=== PATIENT | female | born 1950 | race Caucasian/White ===

== ENCOUNTER → 2021-05-16 14:18 | Outpatient (CLI) | payer MEDICARE, OTHER, SELFPAY ==
--- NOTE | ~2021-05-16 | CT_ITS ---
EXAMINATION: XR abdomen/kub 1V, CT abdomen pelvis wo/w con DATE: 05/16/2021 15:35 INDICATION: Gross hematuria TECHNIQUE: 1. Computed tomography (CT) of the abdomen and pelvis was performed without intravenous contrast. CT of the abdomen and pelvis was then performed with a total of 130 mL Omnipaque-350 intravenous contras t using a double-bolus technique for simultaneous opacification of the renal parenchyma and renal col lecting system. Maximum intensity projection images of the collecting system were created from the vo lumetric source images by the technologist at a separate workstation. A single view of the abdomen wa s obtained on 2 radiographs. The dose-length product was 2032.73 mGy-cm. 2. AP view of the abdomen and pelvis was obtained on 2 radiographs. COMPARISON: None FINDINGS: CT: Compressive atelectasis in the basilar left lower lobe along the elevated left hemidiaphragm. Bronchi ectasis and mild atelectasis/scarring at the basilar right lower lobe. Heart size is normal. No peric ardial or pleural effusion. Small sliding-type hiatal hernia. Gallbladder is not visualized and likel y surgically absent. Liver, pancreas and bilateral adrenal glands are normal. Subtle calcification al leonard a focal invagination along the posterolateral splenic capsule likely sequela of prior infarct or trauma. 2 mm nonobstructing stone at a lower pole calyx of the right kidney. No other urolithiasis on either the left or right. 1.3 cm parapelvic cyst at the upper pole of the left kidney. Bilateral marialuisa al collecting systems and ureters are opacified in their entirety. No evident filling defects or urot helial irregularities. Small phlebolith is seen in the left gonadal vein just anterior to the proxima l left ureter. Bladder is normal. There is mild colonic diverticulosis with a sigmoid predominance. There is no adjacent inflammatory change to suggest diverticulitis. The appendix is not visualized. N o pericecal inflammatory change to suggest acute appendicitis. No bowel obstruction. The uterus is no t identified and has likely been surgically resected. Pelvic floor relaxation. No free intraperitonea l gas or fluid. No pathologically enlarged abdominal or pelvic lymphadenopathy. L5 spondylolysis with bilateral pars intra-articular is defects and 7 mm anterolisthesis on S1. KUB: The tiny stone at the lower pole of the right kidney is not visible on the plain radiographs likely d ue to its small size. The previously noted phlebolith can be seen lateral to the L3-L4 disc space. La rge haustral scattered throughout the colon. IMPRESSION: 1. 2 mm nonobstructing stone at the lower pole of the right kidney. No other urolithiasis. 2. Small sliding-type hiatal hernia. Reviewed, dictated and finalized at location A. IMPRESSION: 1. 2 mm nonobstructing stone at the lower pole of the right kidney. No other ur olithiasis. 2. Small sliding-type hiatal hernia.
[2021-05-16 14:57] LABS: Estimated Glomerular Filt Rate 55
== END ==
PROVIDERS: PCP Family Medicine; Visit Provider Nurse Practitioner Adult Health
DX: R31.0 Gross hematuria (principal); K44.9 Diaphragmatic hernia without obstruction or gangrene; N20.0 Calculus of kidney
CPT/HCPCS: 74018; 74178; Q9967

== ENCOUNTER 2021-12-17 07:09 | Outpatient (CLI) | payer MEDICARE, OTHER, SELFPAY ==
--- NOTE | ~2021-12-17 | XR_ITS ---
EXAMINATION: XR abdomen/kub 1V INDICATION: Kidney stone TECHNIQUE: Supine views of the abdomen were obtained on 2 radiographs. COMPARISON: 05/16/2021 FINDINGS: No urolithiasis is identified. The bowel gas pattern is normal. The visualized lung bases a re clear. There is moderate osteoarthritis of the hips. Phleboliths are noted in the pelvis. IMPRESSION: 1. No urolithiasis identified. Reviewed, dictated and finalized at location A. EMIC SUCCESS COORDINATOR
== END 2021-12-17 07:10 | disposition home or self-care (01) ==
PROVIDERS: PCP Family Medicine; Visit Provider Urology
DX: N20.0 Calculus of kidney (principal)
CPT/HCPCS: 74018

== ENCOUNTER 2022-12-10 09:35 | Outpatient (CLI) | payer MEDICARE, OTHER, SELFPAY ==
--- NOTE | ~2022-12-10 | XR_ITS ---
EXAMINATION: XR abdomen/kub 1V INDICATION: Kidney stone TECHNIQUE: Supine views of the abdomen were obtained on 2 radiographs. COMPARISON: 12/17/2021 FINDINGS: No urolithiasis is identified. There are phleboliths of the pelvis. There also appears to b e a chronic phleboliths in the left ovarian vein. A moderate volume of colonic stool is present. Hayes l gas pattern. There is mild osteoarthritis of the hips. Moderate lumbar spondylosis is noted. IMPRESSION: 1. No urolithiasis identified. Reviewed, dictated and finalized at location L. DBOAT OPERATOR
== END 2022-12-10 09:36 | disposition home or self-care (01) ==
PROVIDERS: PCP Family Medicine; Visit Provider Urology
DX: N20.0 Calculus of kidney (principal)
CPT/HCPCS: 74018

== ENCOUNTER 2023-12-30 08:39 | Outpatient (CLI) | payer MEDICARE, OTHER, SELFPAY ==
--- NOTE | ~2023-12-30 | XR_ITS ---
EXAMINATION: XR abdomen/kub 1V INDICATION: Kidney stone TECHNIQUE: Supine views of the abdomen were obtained on 2 radiographs. COMPARISON: 12/10/2022 FINDINGS: No urolithiasis is identified. A chronic calcification of the left midabdomen is consistent with left ovarian vein phleboliths. The bowel gas pattern is normal. There is moderate lumbar spondy losis. There is mild osteoarthritis of the hips. IMPRESSION: 1. No urolithiasis identified. Reviewed, dictated and finalized at location L. OMER ASSISTANCE ASSOCIATE
== END 2023-12-30 08:40 | disposition home or self-care (01) ==
PROVIDERS: PCP Family Medicine; Visit Provider Urology
DX: N20.0 Calculus of kidney (principal)
CPT/HCPCS: 74018

== ENCOUNTER 2025-01-06 08:56 | Outpatient (CLI) | payer MEDICARE, OTHER, SELFPAY ==
--- NOTE | ~2025-01-06 | XR_ITS ---
EXAMINATION: XR abdomen/kub 1V DATE: 01/06/2025 09:11 INDICATION: Right kidney stone. TECHNIQUE: A supine view of the abdomen on 2 radiographs was obtained. COMPARISON: CT abdomen and pelvis 05/16/2021 FINDINGS: There are no dilated loops of bowel. There is a phlebolith in left ovarian vein. There are phleboliths in right pelvis. IMPRESSION: 1. No visible urolithiasis. Reviewed, dictated and finalized at location A. NATAL EDUCATOR IMPRESSION: 1. No visible urolithiasis.
--- OUTSIDE RECORDS SUMMARY | 2025-01-06 09:31 | XMS_ITS | Referral Summary ---
Author Organization [place] [id number] [facility] Address [facility] [place] [address] Care Team Providers Care Electrical Designer Drafter Name Role Phone Rudolph Robledo DO Primary Care Provider Encounters Date Type Department Care Team Description 01/04/2025 Results Follow-Up [facility] Medical [facility] Primary Care [address] [place] [address] [phone] Rudolph Robledo DO 01/04/2025 8:15 AM [facility]EL[facility] Lab [facility] Office Building [address] [place] [id number] Primary hypertension 01/04/2025 7:45 AM PORCELAIN WAXER Office Visit [facility] Primary Care [address] [place] [address] [phone] Rudolph Robledo DO Longstanding persistent atrial fibrillation (HCC) (Primary Dx); KADE (obstructive sleep apnea); Old NE (myocardial infarction); Primary insomnia; Primary hypertension; Hyperactivity of bladder; Generalized osteoarthritis; Mixed hyperlipidemia; Coronary artery disease involving [place] coronary artery of [place] heart without angina pectoris; Vitamin D deficiency; Peripheral polyneuropathy; Osteopenia of multiple sites from Last 3 Months Allergies Active Allergy Reactions Criticality Noted Date Comments Kelton Inhibitors Cough High 04/05/2019 Amiodarone Other (See comments) Low 12/10/2019 Thyroid and liver labs out of control Medications amLODIPine (NORVASC) 5 mg tablet Take 1 tablet (5 mg total) by mouth daily Active apixaban (ELIQUIS) 5 mg tablet Take 1 tablet (5 mg total) by mouth 2 (two) times a day Active oxyBUTYnin XL (DITROPAN XL) 15 mg 24 hr tablet Take 1 tablet (15 mg total) by mouth daily Active mupirocin (BACTROBAN) 2 % ointment APPLY OINTMENT TOPICALLY 4 TIMES DAILY Active atorvastatin (LIPITOR) 80 mg tablet Take 1 tablet (80 mg total) by mouth daily Active aspirin 81 mg enteric coated tablet Take 1 tablet (81 mg total) by mouth daily Active cholecalciferol (VITAMIN D-3) 25 mcg (1,000 unit) tablet Take 2 tablets (2,000 Units total) by mouth daily Active ezetimibe (ZETIA) 10 mg tablet Take 1 tablet (10 mg total) by mouth daily Active losartan (COZAAR) 100 mg tablet Take 1 tablet (100 mg total) by mouth daily Active metoprolol tartrate (LOPRESSOR) 25 mg immediate release tablet Take 1 tablet (25 mg total) by mouth 2 (two) times a day Active calcium carbonate-vitam in D3 (CALTRATE 600 + D) 1500 mg (600 mg elemental) -400 units per tablet Take by mouth Active Active Problems Problem Noted Date Diagnosed Date Peripheral polyneuropathy 01/04/2025 Overview (01/04/2025): Mild distal neuropathy Continue to monitor symptoms She is staying active Routine physical examination 06/21/2024 Overview (06/21/2024): February 11, 2023 June 21, 2024 Generalized osteoarthritis 02/11/2023 Overview (06/21/2024): Chronic global arthritis Overall stable Working on weight management and staying active Morbid obesity 02/11/2023 Overview (06/21/2024): BMI 37 with hypertension and coronary disease Weight management discussed KADE (obstructive sleep apnea) 06/10/2017 Overview (06/21/2024): KADE is overall stable Continue CPAP use Atrial fibrillation 06/16/2015 Overview (06/21/2024): Chronic condition is overall stable She is following with Cardiology Rate is controlled on beta-belgica She is in and anticoagulation study: Eliquis vs. Milvexian CAD (coronary artery disease), [place] coronary a rtery 06/16/2015 Overview (06/21/2024): Coronary disease with old myocardial infarction without angina She is doing well at this present time Continue with Cardiology She is on a beta-belgica and statin with daily aspirin Continue same medications Old NE (myocardial infarction) 06/16/2015 Overview (06/21/2024): Description: 09/16 Coronary disease with old myocardial infarction without angina She is doing well at this present time Continue with Cardiology She is on a beta-belgica and statin with daily aspirin Continue same medications Hyperactivity of bladder 09/07/2013 Overview (06/21/2024): Chronic, stable condition on oxybutynin Continue same medications Insomnia 09/07/2013 Overview (06/21/2024): Insomnia overall stable not requiring nightly medication Continue monitoring Chronic lower back pain 08/31/2013 Hyperlipidemia 08/31/2013 Overview (06/21/2024): Chronic, stable condition on Lipitor and Zetia Continue same medications Hypertension 08/31/2013 Overview (06/21/2024): Chronic, stable condition on Norvasc, losartan, metoprolol Continue same medications Vitamin D deficiency 08/31/2013 Overview (06/21/2024): Chronic, stable condition on daily vitamin-D replacement Continue same medications Immunizations Immunization Administration Dates Next Due Influenza, Quadrivalent, Hig h Dose, Preservative Free, Intrr 07/16/2023,09/03/2022,08/01/2021,08/05 Influenza, Trivalent, High D ose, Split, Preservative Free, Intramuscular 08/10/2024,08/05/2019,07/29/2018,07/02,07/24/2016 Pneumococcal Conjugate PCV 13 07/02/2017 Pneumococcal Polysaccharide PPV23 07/29/2018 TD Preservative Free 07/04/2011 Tdap 02/24/2023 ZOSTER LIVE 04/03/2012 ZOSTER Recombinant 03/22/2023,12/28/2022 Social History Tobacco Use Types Packs/Day Years Used Date Smoking Tobacco: Never Smokeless Tobacco: Never Tobacco Cessation:Counseling Given: Not Answered AUDIT-C Answer Date Recorded Q1: How often do you have a drink containing alcohol? Never 06/21/2024 Q2: How many drinks containi ng alcohol do you have on a typical day when you are drinking? Patient does not drink Q3: How often do you have si x or more drinks on one occasion? Never 06/21/2024 PHQ-2 Answer Date Recorded PHQ-2 Total Score (If total score is 3 or more points, staff should administer the PHQ-9) 0 06/21/2024 Comments Unknown Sex and Gender Information Value Date Recorded Sex Assigned at Not on file Legal Sex Female 4:02 PM PORCELAIN WAXER Gender Identity Not on file Sexual Orientation Not on file Last Filed Vital Signs Vital Sign Reading Time Taken Comments Blood Pressure 114/68 01/04/2025 7:16 AM PORCELAIN WAXER Pulse 67 01/04/2025 7:16 AM PORCELAIN WAXER Temperature 36.3 C (97.4 F) 01/04/2025 7:16 AM PORCELAIN WAXER Respiratory Rate 18 01/04/2025 7:16 AM PORCELAIN WAXER Oxygen Saturation 98% 01/04/2025 7:16 AM PORCELAIN WAXER Inhaled Oxygen Concentration - - Weight 88.9 kg (196 lb) 01/04/2025 7:16 AM PORCELAIN WAXER Height 161.3 cm (5' 3.5 ) 01/04/2025 7:16 AM PORCELAIN WAXER Body Mass Index 34.18 01/04/2025 7:16 AM PORCELAIN WAXER Plan of Treatment Not on file Procedures Procedure Name Priority Date/Time Associated Diagnosis Comments EGFR Routine 01/04/2025 7:55 AM PORCELAIN WAXER Primary hypertension COMPREHENSIVE METABOLIC PANEL Routine 01/04/2025 7:55 AM PORCELAIN WAXER Primary hypertension STOOL DNA COLOGUARD Routine 06/28/2024 8:35 PM CDT Colon cancer screening HEPATITIS C ANTIBODY Routine 06/21/2024 10:15 AM CDT Need for hepatitis C screening test SCREENING MAMMOGRAM BILATERAL W KYM Schedule Routine, Read Routine (OP Routine) 08/20/2023 from Last 3 Months or Most Recently Relevant to Health Maintenance Results * eGFR (01/04/2025 7:55 AM PORCELAIN WAXER) eGFR 78 >=60 mL/min/1. 73 m2 Comment: Interpretive Data Reference Interval Normal >/= 90 mL/min/1.73m2 Mildly decreased* 60 - 89 mL/min/1.73m2 Mildly to moderately decreased 45 - 59 mL/min/1.73m2 Moderately to severely decreased 30 - 44 mL/min/1.73m2 Severely decreased 15 - 29 mL/min/1.73m2 Kidney Failure < 15 mL/min/1.73m2 *Relative to young adult level Estimated glomerular filtration rate is determined by the 2020 CKD-EPI equation recommended by the National Kidney Foundation (A Unifying Approach to GFR Estimation: Recommendations of the NKF-ASK Task Force on Reassessing the Inclusion of Race in Diagnosing Kidney Disease, JASN 2020). The CKD-EPI equation should not be used for patients with unstable renal function and has not been validated in children and those over 70. Current interpretive data was last reviewed 2021. Testing performed by: [facility], [address] [place] [address]., [id number] Blood 01/04/2025 7:55 AM PORCELAIN WAXER 01/04/2025 9:42 AM PORCELAIN WAXER us Rudolph Robledo DO LAB BLOOD ORDERABLES F inal Result [facility] [phone] [facility] Department [place] [address] * Comprehensive metabolic panel (01/04/2025 7:55 AM PORCELAIN WAXER) Sodium 140 135 - 145 mmol/L Comment:Testing performed by : [address] [address] Potassium, pl 4.6 3.3 - 4.9 mmol/L [facility] FERRER Comment:Testing performed by : [address], [place]., [address] Chloride 107 97 - 110 mmol/L [facility] Comment:Testing performed by : [address], [place]., [address] CO2 24 22 - 32 mmol/L [facility] Comment:Testing performed by : [address], [place]., [address] Anion gap 9 2 - 15 mmol/L [facility] Comment:Testing performed by : [address], [place]., [address] BUN 18 6 - 25 mg/dL [facility] Comment:Testing performed by : [address], [place]., [address] Creatinine 0.80 0.60 - 1.10 mg/dL [facility] Comment:Testing performed by : [address], [place]., [address] Glucose 101 70 - 199 mg/dL [facility] Comment: Interpretive Data Fasting glucose >/= 126 mg/dl is diagnostic for diabetes. Fasting is defined as no caloric intake for at least 8 hours. Fasting glucose between 100 mg/dl to 125 mg/dl is diagnostic of prediabetes. In a patient with classic symptoms of hyperglycemia or hyperglycemic crisis, a random glucose >/= 200 mg/dl is diagnostic for diabetes. In the absence of unequivocal hyperglycemia, results should be confirmed by repeat testing. The classification and Diagnosis of Diabetes Diabetes Care 202; 46: S19-S40. Current interpretive data was last revised 2022. Testing performed by: [address] [address] Calcium 10.1 8.5 - 10.3 mg/dL [facility] Comment:Testing performed by : [address] [address] Bilirubin, total 0.7 0.1 - 1.2 mg/dL [facility] Comment:Testing performed by : [address] [address] Protein, pl 7.3 6.5 - 8.5 g/dL [facility] Comment:Testing performed by : [address] [address] Albumin 4.2 3.5 - 5.0 g/dL [facility] Comment:Testing performed by : [address] [address] Alk phos 83 40 - 130 Units/L [facility] Comment:Testing performed by : [address] [address] ALT 15 7 - 45 Units/L [facility] Comment:Testing performed by : [address] [address] AST 20 10 - 45 Units/L [facility] Comment:Testing performed by : [address] [address] Blood 01/04/2025 7:55 AM PORCELAIN WAXER 01/04/2025 9:42 AM P[facility]CELAIN WAXER [facility] F inal Result [facility] [phone] [facility] Department [place] [address] * Stool DNA - Cologuard (06/28/2024 8:35 PM CDT) Stool DNA - Cologuard Negative Negative [facility] (CLIA #:[id number]) Comment: NEGATIVE TEST RESULT. A negative Cologuard result indicates a low likelihood that a colorectal cancer (CRC) or advanced adenoma (adenomatous polyps with more advanced pre-malignant features) is present. The chance that a person with a negative Cologuard test has a colorectal cancer is less than 1 in 1500 (negative predictive value >99.9%) or has an advanced adenoma is less than 5.3% (negative predictive value 94.7%). These data are based on a prospective cross-sectional study of 10,000 individuals at average risk for colorectal cancer who were screened with both Cologuard and colonoscopy. (Sayra Murillo al, N Engl J Med 2014;370(14):6022-0083) The normal value (reference range) for this assay is negative. COLOGUARD RE-SCREENING RECOMMENDATION: Periodic colorectal cancer screening is an important part of preventive healthcare for asymptomatic individuals at average risk for colorectal cancer. Following a negative Cologuard result, the [place] [employer] Society and U.S. Multi-Society Task Force screening guidelines recommend a Cologuard re-screening interval of 3 years. References: [place] [employer] Society Guideline for Colorectal Cancer Screening: https://www.cancer.org/cancer/necbi-muahwm-oasxzh/offphnejv-tzntvittu-wzhyoon/ac s-rec ommendations.html.; Ebenezer DK, Kary CAUSEY, Krystle McnairK, Colorectal Cancer Screening: Recommendations for Physicians and Patients from the U.S. Multi-Society Task Force on Colorectal Cancer Screening , Am J Gastroenterology 2017; 112:5077-4238. TEST DESCRIPTION: Composite algorithmic analysis of stool DNA-biomarkers with hemoglobin immunoassay. Quantitative values of individual biomarkers are not reportable and are not associated with individual biomarker result reference ranges. Cologuard is intended for colorectal cancer screening of adults of either sex, 45 years or older, who are at average-risk for colorectal cancer (CRC). Cologuard has been approved for use by the U.S. FDA. The performance of Cologuard was established in a cross sectional study of average-risk adults aged 50-84. Cologuard performance in patients ages 45 to 49 years was estimated by sub-group analysis of near-age groups. Colonoscopies performed for a positive result may find as the most clinically significant lesion: colorectal cancer [4.0%], advanced adenoma (including sessile serrated polyps greater than or equal to 1cm diameter) [20%] or non- advanced adenoma [31%]; or no colorectal neoplasia [45%]. These estimates are derived from a prospective cross-sectional screening study of 10,000 individuals at average risk for colorectal cancer who were screened with both Cologuard and colonoscopy. (Sayra Murillo al, N Engl J Med 2014;370(14):2276-3821.) Cologuard may produce a false negative or false positive result (no colorectal cancer or precancerous polyp present at colonoscopy follow up). A negative Cologuard test result does not guarantee the absence of CRC or advanced adenoma (pre-cancer). The current Cologuard screening interval is every 3 years. ([place] [employer] Society and U.S. Multi-Society Task Force). Cologuard performance data in a 10,000 patient pivotal study using colonoscopy as the reference method can be accessed at the following location: www.[employer]/results. Additional description of the Cologuard test process, warnings and precautions can be found at www.cologuard.com. Stool 06/28/2024 8:35 PM CDT 06/30/2024 10:26 AM CDT [facility] LAB BODY FLUIDS AND ST OOLS ORDERABLES Final Result [facility] (CLIA #:[id number]) [address] [place] [address] * Hepatitis C antibody Blood (06/21/2024 10:15 AM CDT) Hep C Ab Nonreactive Nonreactive Comment: Antibodies to HCV not detected. Does NOT exclude the possibility of recent exposure to HCV. Current interpretive data was last revised on 22 Interpretive Data Nonreactive: Antibodies to HCV not detected. Does NOT exclude the possibility of recent exposure to HCV. Equivocal: Equivocal for HCV antibodies. Supplemental molecular testing will be automatically performed to determine infection status in accordance with current CDC screening recommendations. Reactive: Positive for HCV antibodies. This may represent current or past HCV infection. Supplemental molecular testing will be automatically performed to determine current infection status in accordance with current CDC screening recommendations. Interpretive data was last revised on 2020. Blood 06/21/2024 10:1 5 AM CDT 06/21/2024 2:25 PM CDT [facility] LAB MICROBIOLOGY - GEN ERAL ORDERABLES Edited Result - Final Performing Organization Address City/[facility]/ZIP Co de Phone Number [facility] [phone] [facility] Department [place] [address] * Screening Mammogram Bilateral W Kym (08/20/2023) Anatomical Region Laterality Modality Breast Bilateral Mammography Historical Provider MD [facility] MAMMO PROCEDURES Marcella l Result from Last 3 Months or Most Recently Relevant to Health Maintenance Insurance MEDICARE [facility] [place] MED[place] [facility] [place] AHRICHIE Monteiro [id number] Care Teams Electrical Designer Drafter Relationship Specialty Start Date End Date Rudolph Robledo DO PCP - General 06/27/20
--- OUTSIDE RECORDS SUMMARY | 2025-01-06 09:31 | XMS_ITS | Encounter Summary ---
Author Organization [facility] Healthcare Address [address] [place] [address] Care Team Providers Care Corporate Tax Manager Name Role Phone Rudolph Robledo DO Primary Care Provider Encounter Details Date Type Department Care Team ([facility] st Contact Info) Description 01/04/2025 Results Follow-Up [facility] Medical Group Primary Care [address] [phone] Rudolph Robledo DO [facility] [address] Social History Tobacco Use Types Packs/Day Years Used Date Smoking Tobacco: Never Smokeless Tobacco: Never AUDIT-C Answer Date Recorded Q1: How often [...] on file Legal Sex Female 4:02 PM LATHE HAND Gender Identity Not on file Sexual Orientation Not on file documented as of this encounter Miscellaneous Notes * Result Encounter Note - Amanda Wang RN - 01/04/2025 5:08 PM LATHE HAND Pt aware E HAND documented in this encounter Plan of Treatment Not on file documented as of this encounter Visit Diagnoses Not on filedocumented in this encounter Care Teams Corporate Tax Manager Relationship Specialty Start Date End Date Rudolph Robledo DO PCP - General 06/27/20 documented as of this encounter
--- OUTSIDE RECORDS SUMMARY | 2025-01-06 09:31 | XMS_ITS | Clinical Summary ---
Author Organization [facility] Address [address] [place] [address] Care Team Providers Care Bingo Usher Name Role Phone Rudolph Robledo DO Primary Care Provider [phone] Georges Rachel MD Unavailable [phone] Allergies Active Allergy Reactions Criticality Noted Date Comments Kelton Inhibitors Cough High 04/05/2019 Amiodarone Other (see comment) 12/10/2019 Thyroid and liver labs out of control Medications amlodipine 5 MG tablet Take 1 tablet by mouth daily. 12/09/2016 Active apixaban (ELIQUIS) 5 MG tablet Take 1 tablet by mouth 2 (two) times daily. Active aspirin EC 81 MG tablet Active Cholecalciferol (VITAMIN D) 1000 UNIT tablet Take 2 tablets by mouth daily. Active ezetimibe (ZETIA) 10 MG tablet Take 1 tablet by mouth daily. 07/17/2013 Active losartan 100 MG tablet Take 1 tablet by mouth daily. Active metoprolol tartrate 25 MG tablet Take 1 tablet by mouth 2 (two) times daily. Active Calcium Carbonate-Vitam in D (CALCIUM 600 + D OR) Active atorvastatin 80 MG tablet Take 80 mg by mouth daily. 09/29/2020 Active calcium carbonate (OS-JONI) 600 MG tablet Take by mouth every 12 (twelve) hours. 01/10/2020 Active oxybutynin XL (DITROPAN XL) 15 MG 24 hr tablet Take 1 tablet by mouth daily. 12/27/2022 Active Active Problems Problem Noted Date Diagnosed Date Morbid obesity (CMS/HCC HHS/HCC) 02/11/2023 Generalized osteoarthritis 02/11/2023 Herpes zoster without complication 12/22/2020 Stress fracture of right femur, initial encounte r 04/27/2019 Stress fracture of right tibia, initial encounte r 04/27/2019 Primary osteoarthritis of right knee 04/27/2019 Old complex tear of medial meniscus of right kne e 04/27/2019 Old complex tear of lateral meniscus of right kn ee 04/27/2019 Transaminitis 02/10/2019 Right knee pain 01/25/2019 Urinary tract infection 08/18/2018 KADE (obstructive sleep apnea) 06/10/2017 Chronic anticoagulation 02/21/2017 Fatigue 09/09/2016 Hematuria, unspecified type 06/19/2016 Atrial fibrillation ([facility]) 06/16/2015 CAD (coronary artery disease), tolowa dee-ni' coronary a rtery 06/16/2015 Old ID (myocardial infarction) 06/16/2015 Overview (03/22/2019): Description: 09/16 Obesity 06/12/2015 At risk of disease 05/29/2015 Transient ischemic attack 10/03/2014 History of transient ischemic attack 12/21/2013 Hyperactivity of bladder 09/07/2013 Insomnia 09/07/2013 Allergic rhinitis 08/31/2013 Chronic lower back pain 08/31/2013 Cystourethrocele 08/31/2013 Hyperlipidemia 08/31/2013 Hypertension 08/31/2013 Sciatica 08/31/2013 Overview (03/22/2019): Laterality: Right Umbilical hernia 08/31/2013 Vitamin D deficiency 08/31/2013 Resolved Problems Problem Noted Date Diagnosed Date Resolved Date Breast cancer screening 12/10/201707/04 Encounter for preventive health examination 07/17/2013 07/14/2020 Immunizations Name Administration Dates Next Due Fluzone High Dose - >Age 65 (Prefilled Syringe) 09/03/2022,08/01/2021,08/05/2020,2018,07/29/2018,07/02/2017,07/24/2016 Influenza Adult (Generic) 07/16/2023 MODERNA COVID-19 (12+) MRNA, LNP-S, PF, 100 MCG/ 0.5 ML DOSE 01/27/2021,12/30/2020 MODERNA COVID-19 (CONTINUOUS MINER OPERATOR HELPER LANCE LESLYE), MRNA, LNP-S, PF, 50 MCG/ 0.25 ML DOSE 10/06/2021 Pneumococcal (Pneumovax 23) 07/29/2018 Pneumococcal (Prevnar 13) 07/02/2017 Shingrix 03/22/2023,12/28/2022 Td (Tenivac) preservative free 07/04/2011 Tdap (Generic) 02/24/2023 Zoster (Zostavax) 73741 Unt/0.65Ml 04/03/2012 Family History Medical History Relation Comments Cancer Brother Esophageal COPD Father Hypertension Father ID Maternal Grandfather Leukemia Mother Cancer Paternal Grandmother Relation Status Comments Brother Father Maternal Grandfather Mother Paternal Grandmother Social History Tobacco Use Types Packs/Day Years Used Date Smoking Tobacco: Never Smokeless Tobacco: Never Alcohol Use Standard Drinks/Week Comments No 0 (1 standard drink = 0.6 oz pur e alcohol) AUDIT-C Answer Date Recorded Frequency of Alcohol Consumption Never 03/22/2019 Average Number of Drinks Not on file 019 Frequency of Binge Drinking Not on file 03/04 PHQ-2 Answer Date Recorded Patient Health Questionnaire-2 Score 0 02/11/2023 Comments Unknown Sex and Gender Information Value Date Recorded Sex Assigned at Not on file Legal Sex Female 8:27 PM CDT Gender Identity Not on file Sexual Orientation Not on file Last Filed Vital Signs Vital Sign Reading Time Taken Comments Blood Pressure 132/78 02/11/2023 7:54 AM CDT Pulse 64 02/11/2023 7:54 AM CDT Temperature 36.8 C (98.3 F) 12/05/2020 9:52 AM ORCHID SUPERINTENDENT Respiratory Rate - - Oxygen Saturation 96% 02/11/2023 7:54 AM CDT Inhaled Oxygen Concentration - - Weight 102.5 kg (226 lb) 02/11/2023 7:54 AM CDT Height 161.3 cm (5' 3.5 ) 02/11/2023 7:54 AM CDT Body Mass Index 39.41 02/11/2023 7:54 AM CDT Plan of Treatment Health Maintenance Due Date Last Done Comments ASCVD Statin 1950 RSV Immunization or 60+ Years (1 - Risk 60-74 years 1-dose series) 2012 ASCVD LDL 03/01/2015 03/01/2014, 01/01, 09/07/2013 Colorectal Cancer Screening Colonoscopy (10 Years) 05/03/2016 05/03/2006 Annual Medicare Wellness Visit 02/13/2024 02/11/2023 COVID-19 Vaccine ( season) 2024 10/06/2021, 01/27/2021, 12/30/2020 Influenza Adult (#1) 2024 07/16/2023, 09/03/2022, 08/01/2021, Additional history exists Mammogram Screening 08/20/2025 08/20/2023, 09/06/2021, 07/17/2020, Additional history exists DTaP, Tdap and Td Vaccines (2 - Td or Tdap) 02/24/2033 02/24/2023, 07/04/2011, 07/04/2011 Pneumococcal Vaccine: 65+ Years Completed 07/29/2018, 07/02/2017 Dexa Scan (General) Completed 05/03/2019 Zoster Vaccines Completed 03/22/2023, 12/05, 04/03/2012 Hepatitis C Completed 06/21/2024, 06/21/2024 Meningococcal B Vaccine Aged Out No l onger eligible based on patient's age to complete this topic Meningococcal Vaccine Aged Out No colby chantal eligible based on patient's age to complete this topic RSV Immunizations Under 20 Months Aged Out No longer eligible based on patient's age to complete this topic Procedures Procedure Name Priority Date/Time Associated Diagnosis Comments MAMMOGRAM GENERIC (SCAN ORDER) Routine 08/20/2023 BONE DENSITY/DEXA Routine 05/03/2019 8:2 6 AM CDT Other specified disorders of bone density and structure, other site Stress fracture of right tibia, initial encounter Stress fracture of right femur, initial encounter Vitamin D deficiency Menopausal syndrome Acute pain of right knee LIPID PANEL Routine 03/01/2014 7:51 AM CDT COLONOSCOPY Routine 05/03/2006 12:00 AM CDT from Last 3 Months or Most Recently Relevant to Health Maintenance Results * MAMMOGRAM (08/20/2023) Anatomical Region Laterality Modality Other us Doc Bfma Scanned SCANNING Final Result * BONE DENSITY/DEXA (05/03/2019 8:26 AM CDT) Anatomical Region Laterality Modality Bone Mammography 05/03/2019 8:27 AM CDT Impressions 05/03/2019 8:29 AM CDT IMPRESSION: Femoral Neck: osteopenia. Lumbar spine: normal. Due to multilevel degenerative changes and spurring in the lumbar spine, bone mineral density measurement of femoral necks is felt to better represent true bone mineral density status. Interpreted By: Odilon Garay MD, 05/03/2019 8:27 AM Narrative 05/03/2019 8:29 AM CDT Examination: Bone Density Axial Exam Date/Time: 05/03/2019 7:52 AM Reason For Exam: Postmenopausal, screening, height loss, prior fracture, hysterectomy Comparison: None Findings: DEXA bone densitometry The bone mineral density (BMD) was determined by dual-energy x-ray absorptiometry, the results are as follows: AP Lumbar Spine L1 through L4 BMD Patient (GM/SQCM): 1.080 T-Score (Standard deviations from young adult peak bone density): 0.3 Right femoral neck: BMD Patient (GM/SQCM): 0.656 T-Score (Standard deviations from young adult peak bone density): -1.7 Total right femur: BMD Patient (GM/SQCM): 0.892 T-Score (Standard deviations from young adult peak bone density): -0.4 Procedure Note Odilon Garay MD - 05/03/2019 Examination: Bone Density Axial Exam Date/Time: 05/03/2019 7:52 AM Reason For Exam: Postmenopausal, screening, height loss, prior fracture, hysterectomy Comparison: None Findings: DEXA bone densitometry The bone mineral density (BMD) was determined bydual-energy x-ray absorptiometry, the results are as follows: AP Lumbar Spine L1 through L4 BMD Patient (GM/SQCM): 1.080 T-Score (Standard deviations from young adult peak bonedensity): 0.3 Right femoral neck: BMD Patient (GM/SQCM): 0.656 T-Score (Standard deviations from young adult peak bonedensity): -1.7 Total right femur: BMD Patient (GM/SQCM): 0.892 T-Score (Standard deviations from young adult peak bonedensity): -0.4 IMPRESSION: Femoral Neck: osteopenia. Lumbar spine: normal. Due to multilevel degenerative changes and spurringin the lumbar spine, bone mineral density measurement of femoral necks isfelt to better represent true bone mineral density status. Interpreted By: Odilon Garay MD, 05/03/2019 8:27 AM Rudolph Robledo DO DEXA Final Resul t * (ABNORMAL) LIPID PANEL (03/01/2014 7:51 AM CDT) [facility] CHOLESTEROL 157 125 - 200 mg/dL TOUCHWORKS TO EPIC CONVERSION HDL 40(L) > OR = 46 mg/dL TOUCHWORKS TO EPIC CONVERSION TRIGLYCERIDES 155(H) <150 mg/dL TOUCHWORKS TO EPIC CONVERSION LDL (CALCULATED) 86 <130 BLANCA CHWORKS TO EPIC CONVERSION Comment: Result Comment: UNITS: mg/dL (calc) Desirable range <100 mg/dL for patients with CHD or diabetes and <70 mg/dL for diabetic patients with known heart disease. CHOL/HDL RATIO 3.9 < OR = 5.0 (calc) TOUCHWORKS TO EPIC CONVERSION NON HDL CHOLESTEROL 117 TOUCHWORKS TO EPIC CONVERSION Comment: Result Comment: UNITS: mg/dL (calc) Target for non-HDL cholesterol is 30 mg/dL higher than LDL cholesterol target. Test Performed at: [facility] [address] [place] [address] JERED DONIS DO,MPH 03/01/2014 7:51 AM CDT 03/01/2014 7:51 AM CDT Narrative TOUCHWORKS TO EPIC CONVERSION - 03/02/2014 7:49 AM CDT Result Communication: Call patient with results us Generic Conversion Md [facility] Final R esult TOUCHWORKS TO EPIC CONVERSION * Colonoscopy (05/03/2006 12:00 AM CDT) 05/03/2006 05/03/2006 Narrative TOUCHWORKS TO EPIC CONVERSION - 05/03/2006 12:00 AM CDT Documented hx of procedure Procedure Note Armando Dobbs MD - 01/21/2019 Documented hx of procedure Generic Conversion Md [facility] GI PROCEDURE ORDERABLES Final Result Performing Organization Address City/[facility] Co de Phone Number TOUCHWORKS TO EPIC CONVERSION from Last 3 Months or Most Recently Relevant to Health Maintenance Insurance MEDICARE [facility] MEDICARE [facility] Care Teams Bingo Usher Relationship Specialty Start Date End Date Rudolph Robledo DO PCP - General FAMILY PRACTICE 01/25/19 Georges Rachel MD INTERVENTIONAL CARDIOLOGY 02/03/23
--- OUTSIDE RECORDS SUMMARY | 2025-01-06 09:31 | XMS_ITS | Clinical Summary ---
Author Organization [place] [id number] Address [facility] [place] [address] Care Team Providers Care Sales Management Trainee Name Role Phone Rudolph Robledo DO Primary Care Provider Allergies Active Allergy Reactions Criticality Noted Date [...] ointment APPLY OINTMENT TOPICALLY 4 TIMES DAILY 4 Active atorvastatin (LIPITOR) 80 mg tablet Take [...] Eliquis vs. Milvexian CAD (coronary artery disease), ambler coronary a rtery 06/16/2015 Overview (06/21/2024): Coronary disease with old myocardial infarction without angina She is doing well at this present time Continue with Cardiology She is on a beta-belgica and statin with daily aspirin Continue same medications Old NJ (myocardial infarction) 06/16/2015 Overview (06/21/2024): Description: 09/16 [...] on daily vitamin-D replacement Continue same medications Encounters Date Type Department Care Team Description 01/04/2025 8:15 AM MEDICAL STAFF COORDINATOR Lab [facility] Office Building [address] [place] [id number] Primary hypertension 01/04/2025 7:45 AM MEDICAL STAFF COORDINATOR Office Visit [facility] Medical [facility] Primary Care [address] [place] [phone] Rudolph Robledo, Longstanding persistent atrial fibrillation (HCC) (Primary Dx); KADE (obstructive sleep apnea); Old NJ (myocardial infarction); Primary insomnia; Primary hypertension; Hyperactivity of bladder; Generalized osteoarthritis; Mixed hyperlipidemia; Coronary artery disease involving ambler coronary artery of ambler heart without angina pectoris; Vitamin D deficiency; Peripheral polyneuropathy; Osteopenia of multiple sites 01/04/2025 Results Follow-Up [facility] Primary Care [address] [place] [phone] Rudolph Robledo DO from Last 3 Months Immunizations Immunization Administration Dates Next Due Influenza, Quadrivalent, Hig h Dose, Preservative Free, Intrr 07/16/2023,09/03/2022,08/01/2021,08/05 Influenza, Trivalent, High D ose, Split, Preservative Free, Intramuscular 08/10/2024,08/05/2019,07/29/2018,07/02,07/24/2016 Pneumococcal Conjugate PCV 13 07/02/2017 Pneumococcal Polysaccharide PPV23 07/29/2018 TD Preservative Free 07/04/2011 Tdap 02/24/2023 ZOSTER LIVE 04/03/2012 ZOSTER Recombinant 03/22/2023,12/28/2022 Surgical History Surgery Date Site/Laterality Comments APPENDECTOMY BREAST BIOPSY CHOLECYSTECTOMY COLONOSCOPY HYSTERECTOMY HERNIA REPAIR DILATION AND CURETTAGE OF UTERUS Family History Medical History Relation Name Comments COPD Father Leukemia Mother Relation Name Status Comments Father Mother Social History Tobacco Use Types Packs/Day Years [...] on file Legal Sex Female 4:02 PM MEDICAL STAFF COORDINATOR Gender Identity Not on file Sexual Orientation Not on file Obstetrics History Last Filed Vital Signs Vital Sign Reading Time Taken Comments Blood Pressure 114/68 01/04/2025 7:16 AM MEDICAL STAFF COORDINATOR Pulse 67 01/04/2025 7:16 AM MEDICAL STAFF COORDINATOR Temperature 36.3 C (97.4 F) 01/04/2025 7:16 AM MEDICAL STAFF COORDINATOR Respiratory Rate 18 01/04/2025 7:16 AM MEDICAL STAFF COORDINATOR Oxygen Saturation 98% 01/04/2025 7:16 AM MEDICAL STAFF COORDINATOR Inhaled Oxygen Concentration - - Weight 88.9 kg (196 lb) 01/04/2025 7:16 AM MEDICAL STAFF COORDINATOR Height 161.3 cm (5' 3.5 ) 01/04/2025 7:16 AM MEDICAL STAFF COORDINATOR Body Mass Index 34.18 01/04/2025 7:16 AM MEDICAL STAFF COORDINATOR Plan of Treatment Health Maintenance Due Date Last Done Comments Osteoporosis Screening-Bone Density Scan 05/03/2021 05/03/2019 Covid-19 Vaccine (4 - 2024-2 5 season) 2024 10/06/2021, 01/27/2021, 12/30/2020 Breast Cancer Screening-Mammogram 08/20/2024 023, 09/06/2021 Depression Screening 06/21/2025 06/21/2024 Fall Risk Assessment 06/21/2025 06/21/2024 Well Visit 65+ 06/21/2025 06/21/2024 Colon Cancer Screening-DNA Stool 06/28/2027 06/28/20, 01/01/2021 DTaP/Tdap/Td Vaccine (2 - Td or Tdap) 02/24/2033 02/24/2023, 07/04/2011 Pneumococcal vaccine 65+ Completed 07/29/2018, 06/05 Zoster Vaccine Completed 03/22/2023, 12/05, 04/03/2012 Hepatitis B Screening Completed 06/21/2024 Hepatitis C Screening Completed 06/21/2024 Colon Cancer Screening-FIT Discontinued 06/28/2024, Influenza Vaccine Completed 08/10/2024, , 09/03/2022, Additional history exists Procedures Procedure Name Priority Date/Time Associated Diagnosis Comments EGFR Routine 01/04/2025 7:55 AM MEDICAL STAFF COORDINATOR Primary hypertension COMPREHENSIVE METABOLIC PANEL Routine 01/04/2025 7:55 AM MEDICAL STAFF COORDINATOR Primary hypertension STOOL DNA COLOGUARD Routine 06/28/2024 8:35 PM CDT Colon cancer screening HEPATITIS C ANTIBODY Routine 06/21/2024 10:15 AM CDT Need for hepatitis C screening test SCREENING MAMMOGRAM BILATERAL W MAREK Schedule Routine, Read Routine (OP Routine) 08/20/2023 from Last 3 Months or Most Recently Relevant to Health Maintenance Results * eGFR (01/04/2025 7:55 AM MEDICAL STAFF COORDINATOR) eGFR 78 >=60 mL/min/1. 73 m2 Comment: [...] was last reviewed 2021. Testing performed by: [address] [address] Blood 01/04/2025 7:55 AM MEDICAL STAFF COORDINATOR 01/04/2025 9:42 AM MEDICAL STAFF COORDINATOR Rudolph Robledo LAB BLOOD ORDERABLES F inal Result [facility] [address] Department [place] [address] * Comprehensive metabolic panel (01/04/2025 7:55 AM MEDICAL STAFF COORDINATOR) Sodium 140 135 - 145 mmol/L Comment:Testing performed by : [address] [address] Potassium, pl 4.6 3.3 - 4.9 mmol/L [facility] Comment:Testing performed by : [address] [address] Chloride 107 97 - 110 mmol/L [facility] Comment:Testing performed by : [address] [address] CO2 24 22 - 32 mmol/L [facility] Comment:Testing performed by : [address] [address] Anion gap 9 2 - 15 mmol/L [facility] Comment:Testing performed by : [address] [address] BUN 18 6 - 25 mg/dL [facility] Comment:Testing performed by : [address] [place]., [address] Creatinine 0.80 0.60 - 1.10 mg/dL [facility] Comment:Testing performed by : [address] [address] Glucose 101 70 - 199 mg/dL [facility] Comment: Interpretive Data Fasting glucose >/= 126 [...] classification and Diagnosis of Diabetes Diabetes Care 2021; 46: S19-S40. Current interpretive data was last revised 2022. Testing performed by: [address] [address] Calcium 10.1 8.5 - 10.3 mg/dL [facility] Comment:Testing performed by : [address] [address] Bilirubin, total 0.7 0.1 - 1.2 mg/dL [facility] Comment:Testing performed by : [address] [address] Protein, pl 7.3 6.5 - 8.5 g/dL [facility] Comment:Testing performed by : [address] [address] Albumin 4.2 3.5 - 5.0 g/dL [facility] Comment:Testing performed by : [address] [address] Alk phos 83 40 - 130 Units/L [facility] Comment:Testing performed by : [address] [address] ALT 15 7 - 45 Units/L [facility] Comment:Testing performed by : [address] [address] AST 20 10 - 45 Units/L [facility] Comment:Testing performed by : [address] [address] Blood 01/04/2025 7:55 AM MEDICAL STAFF COORDINATOR 01/04/2025 9:42 AM MEDICAL STAFF COORDINATOR Rudolph Robledo LAB BLOOD ORDERABLES F inal Result [facility] [address] [facility] Department [place] [address] * Stool DNA - Cologuard (06/28/2024 8:35 PM CDT) Stool DNA - Cologuard Negative Negative [employer] (CLIA #:[id number]) Comment: NEGATIVE TEST RESULT. A negative Cologuard [...] screened with both Cologuard and colonoscopy. (Sayra Barth et al, N Engl J Med 2014;370(14):0654-9744) The normal value (reference range) for this assay is negative. COLOGUARD RE-SCREENING RECOMMENDATION: Periodic colorectal cancer screening is an important part of preventive healthcare for asymptomatic individuals at average risk for colorectal cancer. Following a negative Cologuard result, the [place] [employer] and U.S. Multi-Society Task Force screening guidelines recommend a Cologuard re-screening interval of 3 years. References: [place] [employer] Guideline for Colorectal Cancer Screening: https://www.cancer.org/cancer/yfuab-tbqayr-zttekz/eomuhsccy-gplbulvaa-jxofvrl/ac s-rec ommendations.html.; Ebenezer AVLES, Kary CAUSEY, Krystle WHITE, Colorectal Cancer Screening: Recommendations for Physicians and Patients from the U.S. Multi-Society Task Force on Colorectal Cancer Screening , Am J Gastroenterology 2017; 112:2238-8512. TEST DESCRIPTION: Composite algorithmic analysis of stool [...] (Sayra Murillo al, N Engl J Med 2014;370(14):3735-1636.) Cologuard may produce a false negative or false positive result (no colorectal cancer or precancerous polyp present at colonoscopy follow up). A negative Cologuard test result does not guarantee the absence of CRC or advanced adenoma (pre-cancer). The current Cologuard screening interval is every 3 years. ([place] [employer] and U.S. Multi-Society Task Force). Cologuard performance data in a 10,000 patient pivotal study using colonoscopy as the reference method can be accessed at the following location: www.GOSO/results. Additional description of the Cologuard test process, warnings and precautions can be found at www.Sharethroughrd.com. Stool 06/28/2024 8:35 PM CDT 06/30/2024 10:26 AM CDT Rudolph Robledo DO LAB BODY FLUIDS AND ST OOLS ORDERABLES Final Result [employer] (CLIA #:[id number]) Zohre[address] [place] [address] * Hepatitis C antibody Blood (06/21/2024 10:15 [...] 5 AM CDT 06/21/2024 2:25 PM CDT Rudolph Robledo DO LAB MICROBIOLOGY - GEN ERAL ORDERABLES Edited Result - Final [facility] [address] [facility] Department [place] [address] * Screening Mammogram Bilateral W Marek (08/20/2023) Anatomical Region Laterality Modality Breast Bilateral Mammography Historical Provider IMG MAMMO PROCEDURES Marcella l Result from Last 3 Months or Most Recently Relevant to Health Maintenance Insurance MEDICARE [employer]ICARE [employer] Care Teams Sales Management Trainee Relationship Specialty Start Date End Date Rudolph Robledo DO PCP - General 06/27/20
--- OUTSIDE RECORDS SUMMARY | 2025-01-06 09:31 | XMS_ITS | CONTINUITY OF CARE DOCUMENT ---
Author Name sera zamora Address Unknown Organization [facility] Address [address] [place] [address] Phone [phone] Care Team Providers Care Dough Braker Name Role Phone Georges Rachel MD Unavailable CARLOS ENRIQUE CASEY MD Unavailable CARLOS ENRIQUE CASEY MD Unavailable PROBLEMS Condition Status Date Provider Notes Hypercholesterolemia active Georges Rachel MD Other symptoms involving cardiovascular system completed - Georges Rachel MD CAD, STEMI 09-12-14, PTCA OM active Georges Rachel MD HTN essential active Georges Rachel MD Hx TIA active Georges Rachel MD Atrial fib paroxysmal active Georges Rachel MD Long-term (current) use of other medications completed - Georges Rachel MD amiodarone Cough due to TAMIR inhibitors completed 2014 - Georges Rachel MD Risk of amiodarone toxicity w manager intermediate completed - Georges Rachel MD Obesity active Georges Rachel MD BMI 30-39 completed - Georges Rachel MD Aftercare, long-term use, medications NEC completed - Georges Rachel MD amiodarone Snoring completed - Georges Rachel MD Fatigue active Georges Rachel MD Sleep apnea, mild, not on CPAP active Reece Rachel MD Current, long-term use, medications NEC completed - Georges Rachel MD Amiodarone Leg edema, bilateral completed - Georges Rachel MD Venous insufficiency active Georges Rachel MD ENCOUNTERS Date Type Provider Location Encounter Diag nosis - In-person encounter Office Visit Georges Rachel MD [facility] - In-person encounter Office Visit Georges Rachel MD [facility] - In-person encounter Office Visit Georges Rachel MD [facility] Risk of amiodarone toxicity w manager intermediate - In-person encounter Office Visit Georges Rachel MD [facility] - In-person encounter Office Visit Georges Rachel MD [facility] - In-person encounter Office Visit Georges Rachel MD [facility] - In-person encounter Office Visit Georges Rachel MD [facility] Leg edema, bilateralVenous insufficiency - In-person encounter Office Visit Georges Rachel MD [facility] - In-person encounter Office Visit Georges Rachel MD [facility] Current, long-term use, medications NEC - In-person encounter Office Visit Georgse Rachel MD [facility] Sleep apnea, mild, not on CPAP - In-person encounter Office Visit Georges Rachel MD [facility] - In-person encounter Office Visit Georges Rachel MD [facility] - In-person encounter Office Visit Georges Rachel MD [facility] Cough due to TAMIR inhibitorsBMI 30-39Aftercare, long-term use, medications NECSnoring - In-person encounter Office Visit Georges Rachel MD [facility] - In-person encounter Office Visit Georges Rachel MD [facility] - In-person encounter Office Visit Georges Rachel MD [facility] - In-person encounter Office Visit Georges Rachel MD [facility] - In-person encounter Office Visit Georges Rachel MD [facility] Sleep apnea, mild, not on CPAP - In-person encounter Office Visit Georges Rachel MD [facility] - In-person encounter Office Visit Georges Rachel MD [facility] Fatigue - In-person encounter Office Visit Georges Rachel MD [facility] - In-person encounter Office Visit Georges Rachel MD [facility] - In-person encounter Office Visit Georges Rachel MD [facility] Obesity - In-person encounter Office Visit Georges Rachel MD [facility] Other symptoms involving cardiovascular systemLong-term (current) use of other medications - In-person encounter Office Visit Georges Rachel MD [facility] CAD, STEMI 09-12-14, PTCA OMHTN essentialHx TIAAtrial fib paroxysmal VITAL SIGNS Date Observation Value Provider Body Mass Index (Ratio) 36.84 kg/m2 Myrtle Rachel MD blood pressure, diastolic 70 mm[Hg] Ani lopezLogjt blood pressure, systolic 118 mm[Hg] Nahomy Akhtar blood pressure, diastolic 70 mm[Hg] An madhu Lugo blood pressure, systolic 118 mm[Hg] Donna Lugo blood pressure, cuff size regular An madhu Lugo oxygen saturation, oximetry 95 % Gabi Lugo respiratory rate E&M 14 /min Gabi Lugo pulse rate 70 /min Gabi Lugo weight E&M 208 [lb_av] Gabi Lugo height E&M 63 [in_i] Gabi Lugo Body Mass Index (Ratio) 40.49 kg/m2 Myrtle Rachel MD blood pressure, cuff size large Sarkis farnsworth Stewart blood pressure, diastolic 72 mm[Hg] Ta daja Stewart blood pressure, systolic 114 mm[Hg] Tab kasie Stewart oxygen saturation, oximetry 94 % Gillian Stewart pulse rate 74 /min Gillian Stewart weight E&M 228.6 [lb_av] Gillian Stewart respiratory rate E&M 12 /min Gillian Stewart height E&M 63 [in_i] Gillian [place] Body Mass Index (Ratio) 40.38 kg/m2 Myrtle Rachel MD blood pressure, cuff size large Peter [place] blood pressure, diastolic 74 mm[Hg] Ja rret blood pressure, systolic 118 mm[Hg] Jar darby pulse rate 82 /min Wayne oxygen saturation, oximetry 97 % Wayne respiratory rate E&M 12 /min Wayne weight E&M 228 [lb_av] Wayne y height E&M 63 [in_i] Wayne y Body Mass Index (Ratio) 40.21 kg/m2 Myrtle Rachel MD pulse rate 79 /min Cristel Wilson blood pressure, diastolic 70 mm[Hg] Pastora Wilson blood pressure, systolic 111 mm[Hg] She kwaku Wilson oxygen saturation, oximetry 100 % Cristel Wilson respiratory rate E&M 18 /min Cristel Wilson blood pressure, cuff size large lee Wilson weight E&M 227 [lb_av] Cristel Wilson height E&M 63 [in_i] Cristel Wilson Body Mass Index (Ratio) 40.28 kg/m2 Myrtle Rachel MD blood pressure, cuff size regular lee Wilson blood pressure, diastolic 67 mm[Hg] lee Wilson blood pressure, systolic 120 mm[Hg] She kwaku Wilson oxygen saturation, oximetry 96 % Cristel Wilson respiratory rate E&M 18 /min Cristel Wilson pulse rate 74 /min Cristel Wilson height E&M 63 [in_i] Cristel Wilson weight E&M 227.4 [lb_av] Cristel Wilson Body Mass Index (Ratio) 39.89 kg/m2 Myrtle Rachel MD blood pressure, cuff size large kelsey Gottlieb blood pressure, diastolic 62 mm[Hg] [facility] Gottlieb blood pressure, systolic 134 mm[Hg] Gayle Gottlieb oxygen saturation, oximetry 97 % Noreen Gottlieb respiratory rate E&M 18 /min Noreen petit pulse rate 69 /min Noreenkadie Gottlieb weight E&M 225.2 [lb_av] Noreen Gottlieb height E&M 63 [in_i] Noreen Gottlieb blood pressure, diastolic 73 mm[Hg] Leida Dorsey blood pressure, systolic 144 mm[Hg] Bill Dorsey oxygen saturation, oximetry 96 % Beatrice Dorsey respiratory rate E&M 18 /min Micheline Dorsey pulse rate 72 /min Beatrice jones Body Mass Index (Ratio) 38.79 kg/m2 Sunita Dorsey weight in kilograms E&M 99.34 kg Sunita Dorsey weight E&M 219 [lb_av] Beatrice jones height E&M 63 [in_i] Beatrice jones blood pressure, cuff size regular Leida Dorsey height in centimeters E&M 160.02 cm Leida Dorsey Body Mass Index (Ratio) 39.50 kg/m2 Myrtle Rachel MD blood pressure, diastolic 65 mm[Hg] Rh neil Hamlin blood pressure, systolic 129 mm[Hg] Rho arie Hamlin blood pressure, cuff size regular Rh neil Hamlin oxygen saturation, oximetry 98 % Jessica Hamlin pulse rate 72 /min Jessica Hamlin respiratory rate E&M 16 /min Jessica Hamlin blood pressure, resting Yes Farida Pardo weight E&M 223 [lb_av] Jessica Hamlin height E&M 63 [in_i] Jessica Hamlin Body Mass Index (Ratio) 40.21 kg/m2 Myrtle Rachel MD pulse rate 70 /min Amber yost oxygen saturation, oximetry 97 % Amber Hernandez blood pressure, cuff size regular Cy tabatha Hernandez blood pressure, diastolic 80 mm[Hg] Cy ntsisia David blood pressure, systolic 138 mm[Hg] Karina alirio Hernandez respiratory rate E&M 16 /min Amber Hernandez weight E&M 227 [lb_av] Amber Scoobybel l height E&M 63 [in_i] Amber Smith l Body Mass Index (Ratio) 40.74 kg/m2 Myrtle fuchs Virginie DOBBS blood pressure, cuff size large Ke rri Gruenenfelder blood pressure, diastolic 80 mm[Hg] Ke rri Gruenenfelder blood pressure, systolic 142 mm[Hg] Mireya Mckeonnenfelder oxygen saturation, oximetry 98 % Anabel Grkimnfelder respiratory rate E&M 16 /min Anabel G ruenenfelder pulse rate 84 /min Anabel Gottliebyazmine lder weight E&M 230 [lb_av] Anabel Lindanenfe lder height E&M 63 [in_i] Anabel Luis Manuelfernandonenfe lder Body Mass Index (Ratio) 39.32 kg/m2 Myrtle jef Rachel MD blood pressure, diastolic 82 mm[Hg] Ni kki Saúl blood pressure, systolic 124 mm[Hg] Stef elton Saúl oxygen saturation, oximetry 96 % Lindsay Saúl pulse rate 63 /min Lindsay Saúl weight E&M 222 [lb_av] Lindsay Saúl height E&M 63 [in_i] Lindsay Saúl temperature site temporal Ruth Tank sley temperature E&M 97.3 [degF] Ruth Tanks verna Body Mass Index (Ratio) 39.68 kg/m2 Myrtle jef Rachel MD pulse rate 71 /min Amber yost oxygen saturation, oximetry 98 % Amber Hernandez blood pressure, cuff size regular Cy ntkim Hernandez blood pressure, diastolic 80 mm[Hg] Cy nthia David blood pressure, systolic 128 mm[Hg] Karina thidarin Hernandez respiratory rate E&M 16 /min Amber Hernandez weight E&M 224 [lb_av] Amberalirio Smith l height E&M 63 [in_i] Amber Almodovarbel l Body Mass Index (Ratio) 35.78 kg/m2 Myrtle Rachel MD blood pressure, diastolic 70 mm[Hg] Ki glen Sims blood pressure, systolic 118 mm[Hg] Bib hamilton Sims oxygen saturation, oximetry 93 % Ararat Sims pulse rate 70 /min Eliezer Sims respiratory rate E&M 16 /min Eliezer Sims weight E&M 202 [lb_av] Ararat Sims height E&M 63 [in_i] Eliezer Sims Body Mass Index (Ratio) 34.72 kg/m2 Myrtle Rachel MD blood pressure, diastolic 82 mm[Hg] Da bear Brad blood pressure, systolic 122 mm[Hg] Dac ia Brad oxygen saturation, oximetry 91 % Cristina Brad respiratory rate E&M 18 /min Cristina V oss pulse rate 66 /min Cristina Brad weight E&M 196 [lb_av] Cristina Brad height E&M 63 [in_i] Cristina Brad Body Mass Index (Ratio) 34.50 kg/m2 Myrtle Rachel MD blood pressure, diastolic 80 mm[Hg] Shamir Garcia blood pressure, systolic 126 mm[Hg] Heidi Garcia oxygen saturation, oximetry 97 % Markie Garcia respiratory rate E&M 18 /min Lars Garcia pulse rate 56 /min Markie salcido weight E&M 194.8 [lb_av] Markie argueta height E&M 63 [in_i] Markie salcido Body Mass Index (Ratio) 31.92 kg/m2 Myrtle Rachel MD blood pressure, diastolic 70 mm[Hg] Elton carroll Sims blood pressure, systolic 122 mm[Hg] Bib hamilton [place] oxygen saturation, oximetry 97 % Eliezer Sims respiratory rate E&M 16 /min Ararat Sims pulse rate 60 /min Eliezer Sims weight E&M 180.2 [lb_av] [facility], [facility] Yes Angela conner [place] height E&M 63 [in_i] [facility] Body Mass Index (Ratio) 32.24 kg/m2 Myrtle Rachel MD blood pressure, cuff size regular Naresh osbornejordan [place] blood pressure, diastolic 70 mm[Hg] Naresh indiajordan [place] blood pressure, systolic 132 mm[Hg] Mireya [place] oxygen saturation, oximetry 97 % Anabel [place] respiratory rate E&M 16 /min Anabel vazquez pulse rate 55 /min Anabel Grimm [facility] weight E&M 182 [lb_av] Anabel Grimm [facility] height E&M 63 [in_i] Anabel Grimm [facility] Body Mass Index (Ratio) 33.65 kg/m2 Myrtle Rachel MD blood pressure, cuff size large Leida Shah blood pressure, diastolic 78 mm[Hg] Leida Shah blood pressure, systolic 110 mm[Hg] Ryanne Shah oxygen saturation, oximetry 98 % Kirstie Shah respiratory rate E&M 16 /min Kirstie Shah pulse rate 61 /min Kirstie Shah weight E&M 190 [lb_av] Kirstie Shah height E&M 63 [in_i] Kirstie Pablo Body Mass Index (Ratio) 36.63 kg/m2 Myrtle Rachel MD blood pressure, diastolic 89 mm[Hg] Shamir Garcia blood pressure, systolic 173 mm[Hg] Heidi Garcia oxygen saturation, oximetry 97 % Markie Garcia respiratory rate E&M 18 /min Lars Garcia pulse rate 63 /min Markie salcido weight E&M 206.8 [lb_av] Markie zamanon height E&M 63 [in_i] Markie torreson blood pressure, diastolic 102 mm[Hg] Naresh [place] blood pressure, systolic 162 mm[Hg] Mireya [place] pulse rate 66 /min Anabel lunaer oxygen saturation, oximetry 96 % Anabel [place] respiratory rate E&M 16 /min Anabel vazquez Body Mass Index (Ratio) 38.08 kg/m2 Veronica [place] weight E&M 215 [lb_av] Anabel Grimm lder blood pressure, diastolic 69 mm[Hg] Kr isty Barbie blood pressure, systolic 142 mm[Hg] Kri sty Barbie pulse rate 65 /min Melissa Barbie oxygen saturation, oximetry 97 % Melissa [place] respiratory rate E&M 16 /min Melissa [place] Body Mass Index (Ratio) 37.45 kg/m2 Humberto ty [place] weight E&M 211.41 [lb_av] Melissa [place] blood pressure, diastolic 79 mm[Hg] Me moises Martins blood pressure, systolic 153 mm[Hg] Brittany kellydarin Martins pulse rate 56 /min Katherine Martins oxygen saturation, oximetry 98 % Katherine Martins respiratory rate E&M 14 /min Katherine Martins Body Mass Index (Ratio) 37.73 kg/m2 [facility] weight E&M 213 [lb_av] Katherine Martins Body Mass Index (Ratio) 38.08 kg/m2 [facility] blood pressure, diastolic 76 mm[Hg] Ri moises Martins blood pressure, systolic 139 mm[Hg] Brittany mendoza Martins pulse rate 68 /min Katherine Martins oxygen saturation, oximetry 97 % Katherine Martins respiratory rate E&M 15 /min Katherine Martins weight E&M 215 [lb_av] Katherine Martins blood pressure, diastolic 75 mm[Hg] Ri moises Martins blood pressure, systolic 135 mm[Hg] Brittany mendoza Martins pulse rate 76 /min Katherine Martins oxygen saturation, oximetry 97 % Katherine Martins respiratory rate E&M 16 /min Katherine Martins Body Mass Index (Ratio) 36.49 kg/m2 [facility] weight E&M 206 [lb_av] Katherine Martins Body Mass Index (Ratio) 35.78 kg/m2 [facility] blood pressure, diastolic 81 mm[Hg] Ri moises Martins blood pressure, systolic 138 mm[Hg] Brittany mendoza Martins pulse rate 64 /min Katherine Martins oxygen saturation, oximetry 98 % Katherine Martins respiratory rate E&M 15 /min Katherine Martins weight E&M 202 [lb_av] Katherine Martins height E&M 63 [in_i] Katherine Martins ALLERGIES Allergy Name Onset Date Reaction Criticality Status AMIODARONE HCL toxicity -per pft & thyroid leve ls Low Criticality active TAMIR INHIBITORS cough cough High Criticality act cassius RESULTS Date Observation Value Provider Reference Range Interpretation Location C-reactive protein, by highly sensitive test 2.7 mg/L [facility] <1.0 High LDL Size 210.9 Angstrom [facility] >222.9 Low LDL particle concentration (lipoprotein panel), risk categories correspond to NCEP categories for LDL cholesterol (on a percentile equivalent basis) 1128 nmol/L [facility] <1138 cholesterol, non-HDL, total 76 MG/DL (CALC) [facility] <130 cholesterol/HDL ratio, serum, percent 2.6 calc [facility] <3.6 LDL cholesterol, serum 53 MG/DL (CALC) [facility] <100 triglyceride, serum, fasting 147 mg/dL [facility] <150 HDL cholesterol, serum 47 mg/dL [facility] >49 Low cholesterol, serum 123 mg/dL [facility] <200 lipoprotein, beta, serum, point, quantitative, calculated 60 mg/dL [facility] 0-99 HDL cholesterol, serum 51 mg/dL [facility] >39 triglyceride, serum, random 130 mg/dL [facility] 0-149 cholesterol, serum 134 mg/dL [facility] 601-810 5374/06 /11 lipoprotein, beta, serum, point, quantitative, calculated 74 mg/dL [facility] 0-99 very low density lipoproteins 31 mg/dL [facility] 5-40 HDL cholesterol, serum 57 mg/dL [facility] >39 triglyceride, serum, random 154 mg/dL [facility] 0-149 High cholesterol, serum 162 mg/dL [facility] [phone]/06 /04 thyroid stimulating hormone, serum 5.090 u[IU]/mL [facility] 0.450-4.500 High thyroid stimulating hormone, serum 4.650 u[IU]/mL [facility] 0.450-4.500 High alanine aminotransferase (SGPT), serum 36 1/L [facility] 0-32 High aspartate aminotransferase (SGOT), serum 27 1/L [facility] 0-40 alkaline phosphatase, serum 70 1/L [facility] 39-117 bilirubin, serum, direct 0.24 mg/dL [facility] 0.00-0.40 bilirubin, serum, total 0.7 mg/dL [facility] 0.0-1.2 albumin, serum 4.5 g/dL [facility] 3.8-4.8 protein, total, serum 6.8 g/dL [facility] 6.0-8.5 thyroxine, serum, free 2.21 ng/dL [facility] 0.82-1.77 High platelet count 240 X10E3/UL [facility] [phone]/02 /05 red blood cell distribution width 15.4 % [facility] 12.3-15.4 mean corpuscular hemoglobin concentration, RBC 32.0 G/DL [facility] 31.5-35.7 mean corpuscular hemoglobin, RBC 27.7 pg [facility] 26.6-33.0 mean corpuscular volume, RBC 86 fL [facility] 79-97 hematocrit, blood 41.2 % [facility] 34.0-46.6 hemoglobin, blood 13.2 g/dL [facility] 11.1-15.9 erythrocyte (RBC) count 4.77 X10E6/UL [facility] 3.77-5.28 leukocyte count, blood 6.0 X10E3/UL [facility] 3.4-10.8 lipoprotein, beta, serum, point, quantitative, calculated 55 mg/dL [facility] 0-99 very low density lipoproteins 18 mg/dL [facility] 5-40 HDL cholesterol, serum 61 mg/dL [facility] >39 triglyceride, serum, random 88 mg/dL [facility] 0-149 cholesterol, serum 134 mg/dL [facility] [phone]/02 /06 alanine aminotransferase (SGPT), serum 32 1/L [facility] 0-32 aspartate aminotransferase (SGOT), serum 23 1/L [facility] 0-40 alkaline phosphatase, serum 64 1/L [facility] 39-117 bilirubin, serum, direct 0.25 mg/dL [facility] 0.00-0.40 bilirubin, serum, total 0.6 mg/dL [facility] 0.0-1.2 albumin, serum 4.5 g/dL [facility] 3.6-4.8 protein, total, serum 7.0 g/dL [facility] 6.0-8.5 very low density lipoproteins 18.2 mg/dL [facility] 5.0 - 40.0 LDL/HDL (low-density lipoprotein/high-de nsity lipoprotein) ratio 1.0 RATIO [facility] - lipoprotein, beta, serum, point, quantitative, calculated 66.8 (?) [facility] 0.0 - 100.0 HDL cholesterol, serum 68.0 mg/dL [facility] 45.0 - 65.0 High cholesterol, serum 153.0 mg/dL [facility] 0.0 - 200.0 triglyceride, serum, fasting 91.0 mg/dL [facility] 0.0 - 150.0 cholesterol, non-HDL, total 109 MG/DL (CALC) [facility] Normal cholesterol/HDL ratio, serum, percent 2.9 (calc) [facility] < OR = 5.0 Normal LDL cholesterol, serum 78 MG/DL (CALC) [facility] <130 Normal triglyceride, serum, fasting 153 mg/dL [facility] <150 High HDL cholesterol, serum 57 mg/dL [facility] > OR = 46 Normal cholesterol, serum 166 mg/dL [facility] 125-200 Normal triglyceride, serum, fasting 116 mg/dL Katherine Martins HDL cholesterol, serum 52 mg/dL Katherine Martins LDL cholesterol, serum 59 mg/dL Katherine Martins cholesterol, serum 134 mg/dL Katherine Martins triglyceride, serum, fasting 108 mg/dL Priscilla Rodriguezoney HDL cholesterol, serum 48 mg/dL Priscilla Augustina LDL cholesterol, serum 63 mg/dL Priscilla Jackman cholesterol, serum 132 mg/dL Priscilla Rodriguezoney HISTORY OF MEDICATION USE Medication Status Instructions Dates Provider Indications Com ments losartan 100 mg tablet active Take 1 tablet by mouth once daily Maria Del Carmen Andrade metoprolol tartrate 25 mg tablet active Take 1 tablet by mouth twice daily Maria Del Carmenjoseph Andrade ezetimibe 10 mg tablet active Take 1 tablet by mouth once daily Maria Del Carmen Andrade Eliquis 5 mg tablet active or STUDY drug for LIBREXIA-AF STUDY Georges Rachel MD amlodipine 5 mg tablet active Take 1 tablet by mouth once daily Maria Del Carmen Andrade atorvastatin 80 mg tablet active Take 1 tablet by mouth once daily Maria Del Carmen Andrade oxybutynin chloride 15 mg tablet extended release 24hr active Take 1 tablet once a day Beatrice Dorsey Calcium 600 600 mg calcium (1,500 mg) tablet active Take 1 tablet twice a day Amber Hernandez amlodipine 5 mg tablet completed 1 by mouth once a day - Georges Rachel MD losartan 100 mg tablet completed Take 1 tablet by mouth once a day - Georges Rachel MD ADULT ASPIRIN EC LOW STRENGTH 81 MG ORAL TABLET DELAYED RELEASE active 1 by mouth once a day Georges Rachel MD VITAMIN D TABLET completed 2000 unit once a day - Georges Rachel MD COZAAR 50 MG ORAL TABLET completed one po daily - Georges Rachel MD Eliquis 5 mg tablet completed Take 1 tablet by mouth twice a day - Georges Rachel MD ASPIRIN 325 MG ORAL TABLET completed ONE TAB. DAILY - Georges Rachel MD AMIODARONE 200MG TAB completed TAKE 1 TABLET BY MOUTH ONCE DAILY - Esperanza Junior RN atorvastatin 80 mg tablet completed 1 tablet once a day - Herrera Montaño PLAVIX 75 MG ORAL TABLET completed ONE TAB. DAILY - Georges Rachel MD LISINOPRIL 5 MG ORAL TABLET completed ONE TAB. DAILY - Georges Rachel MD Ditropan XL 10 mg tablet extended release 24hr completed once a day - Georges Rachel MD metoprolol tartrate 25 mg tablet completed 1 tablet twice a day - Georges Rachel MD ezetimibe 10 mg tablet completed Take 1 tablet by mouth once a day - Marlon Mendez generic for Zetia SOCIAL HISTORY Date Observation Value Provider alcohol use no Georges Rachel MD smoking status Never smoker Geroges webster MD alcohol use no Georges Rachel MD smoking status Never smoker Georges webster MD social history E&M S moking History: P atjosé antonio has never smoked. Georges Rachel MD social history reviewed E&M revi ewed - no changes required Georges Rachel MD smoking status Never smoker Cristel Wilson smoking status Never smoker Georges webster MD social history reviewed E&M revi ewed - no changes required Georges Rachel MD social history E&M S moking History: P atjosé antonio has never smoked. Georges Rachel MD social history reviewed E&M revi ewed - no changes required Georges Rachel MD smoking status Never smoker Noreen Gottlieb smoking status Never smoker Georges webster MD social history E&M Smoking Histo ry: P rip has never smoked. Georges Rachel MD social history reviewed E&M revi ewed - no changes required Georges Rachel MD social history E&M S moking History: P rip has never smoked. Georges Rachel MD social history reviewed E&M revi ewed - no changes required Georges Rachel MD smoking status Never smoker Jessica Yakelin social history E&M S moking History: P rip has never smoked. Georges Rachel MD social history reviewed E&M revi ewed - no changes required Georges Rachel MD smoking status Never smoker Amber foley social history E&M S moking History: P rip has never smoked. Georges Rachel MD social history reviewed E&M revi ewed - no changes required Georges Rachel MD smoking status Never smoker Anabel Vj johnson social history E&M S moking History: P rip has never smoked. Herrera Montaño social history reviewed E&M revi ewed - no changes required Herrera Montaño smoking status Never smoker Lindsay montalvo social history E&M S moking History: Brandon erwin has never smoked. Georges Rachel MD social history reviewed E&M revi ewed - no changes required Georges Rachel MD smoking status Never smoker Amber foley social history E&M S moking History: P rip has never smoked. Georges Rachel MD social history reviewed E&M revi ewed - no changes required Georges Rachel MD alcohol use no Eliezer Sims smoking status Never smoker Eliezer kessler social history reviewed E&M revi ewed - no changes required Addison Pluryao social history E&M S moking History: Brandon erwin has never smoked. Addison Plurad alcohol use no Cristina Brad smoking status Never smoker Cristina Brad social history E&M S moking History: Brandon erwin has never smoked. Georges Rachel MD social history reviewed E&M revi ewed - no changes required Georges Rachel MD alcohol use no Markie Gaona omari smoking status Never smoker Markie Maurer social history reviewed E&M revi ewed - no changes required Georges Rachel MD alcohol use no Eliezer Sims smoking status Never smoker Eliezer Gutiérrez m social history reviewed E&M revi ewed - no changes required Georges Rachel MD alcohol use no Anabel mcgregor smoking status Never smoker Anabel johnson social history reviewed E&M revi ewed - no changes required Georges Rachel MD alcohol use no Kirstie Shah smoking status Never smoker Kirstie Pablo social history reviewed E&M revi ewed - no changes required Georges Rachel MD smoking status Never smoker Markie Maurer social history reviewed E&M revi ewed - no changes required Georges Rachel MD smoking status Never smoker Anabel johnson social history reviewed E&M revi ewed - no changes required Georges Rachel MD number of grandchildren Georges Valentin social history reviewed E&M revi ewed - no changes required Georges Rachel MD smoking status Never smoker Katherine ramires social history reviewed E&M revi ewed - no changes required Georges Rachel MD smoking status Never smoker Katherine ramires social history reviewed E&M revi ewed - no changes required Georges Rachel MD smoking status Never smoker Katherine ramires social history reviewed E&M revi ewed - no changes required Georges Rachel MD smoking status Never smoker Katherine Simental ike FUNCTIONAL STATUS Date Observation Value Provider HRA, CV Assess/Plan, Angina (inactive) Management Plan continue current therapy Georges Rachel MD HRA, CV Assess/Plan, Angina (inactive) Management Plan continue current therapy Georges Rachel MD HRA, CV Assess/Plan, Angina (inactive) Management Plan continue current therapy Georges Rachel MD HRA, CV Assess/Plan, Angina (inactive) Management Plan continue current therapy Georges Rachel MD HRA, CV Assess/Plan, Angina (inactive) Management Plan continue current therapy Georges Rachel MD HRA, CV Assess/Plan, Angina (inactive) Management Plan continue current therapy Georges Rachel MD HRA, CV Assess/Plan, Angina (inactive) Management Plan continue current therapy Georges Rachel MD HRA, CV Assess/Plan, Angina (inactive) Management Plan continue current therapy Georges Rachel MD HRA, CV Assess/Plan, Angina (inactive) Management Plan continue current therapy Georges Rachel MD HRA, CV Assess/Plan, Angina (inactive) Management Plan continue current therapy Herrera Montaño HRA, CV Assess/Plan, Angina (inactive) Management Plan continue current therapy Georges Rachel MD HRA, CV Assess/Plan, Angina (inactive) Management Plan continue current therapy Georges Rachel MD HRA, CV Assess/Plan, Angina (inactive) Management Plan continue current therapy Georges Rachel MD HRA, CV Assess/Plan, Angina (inactive) Management Plan continue current therapy Georges Rachel MD HRA, CV Assess/Plan, Angina (inactive) Management Plan continue current therapy Georges Rachel MD HRA, CV Assess/Plan, Angina (inactive) Management Plan continue current therapy Georges Rachel MD HRA, CV Assess/Plan, Angina (inactive) Management Plan continue current therapy Georges Rachel MD HRA, CV Assess/Plan, Angina (inactive) Management Plan continue current therapy Georges Rachel MD HRA, CV Assess/Plan, Angina (inactive) Management Plan continue current therapy Georges Rachel MD HRA, CV Assess/Plan, Angina (inactive) Management Plan continue current therapy Georges Rachel MD FAMILY HISTORY Family Member Condition Father Family History of Co ronary Artery Disease: INSURANCE PROVIDERS Payer name Policy type / Coverage type [place] red republican ID [place] MEDICARE Medicare [id number] [facility] [employer] [id number] ADVANCE DIRECTIVES Name Date DISCUSSED - NO DECISION MADE TREATMENT PLAN Date Name Performer [id number],SGeorges ra, MD [id number],S, Georges Rushing ra, MD [id number],SGeorges ra, MD [id number],B, H er updated medication list for this problem includes: Ezetimibe 10 Mg Tablet (Ezetimibe) ..... Take 1 tablet by mouth once daily Atorvastatin 80 Mg Tablet (Atorvastatin) ..... Take 1 tablet by mouth once daily Georges Rachel MD [id number],S, H er updated medication list for this problem includes: Metoprolol Tartrate 25 Mg Tablet (Metoprolol tartrate) ..... Take 1 tablet by mouth twice daily Amlodipine 5 Mg Tablet (Amlodipine) ..... Take 1 tablet by mouth once daily Georges Rachel MD [id number],C, B P today: 111/70 P rior BP: 120/67 (02/03/2023) Her updated medication list for this problem includes: Losartan 100 Mg Tablet (Losartan) ..... Take 1 tablet by mouth once daily Metoprolol Tartrate 25 Mg Tablet (Metoprolol tartrate) ..... Take 1 tablet by mouth twice daily Amlodipine 5 Mg Tablet (Amlodipine) ..... Take 1 tablet by mouth once daily Georges Rachel MD [id number],S, Georges Rushing ra, MD [id number],S, Georges Rushing ra, MD [id number],S, Georges Rushing ra, MD [id number],S, Georges Rushing ra, MD [id number],S, Georges Rushing ra, MD [id number],S, H er updated medication list for this problem includes: Ezetimibe 10 Mg Tablet (Ezetimibe) ..... Take 1 tablet by mouth once daily Atorvastatin 80 Mg Tablet (Atorvastatin) ..... Take 1 tablet by mouth once daily Georges Rachel MD [id number],S, B P today: 120/67 P rior BP: 134/62 (08/05/2022) Her updated medication list for this problem includes: Losartan 100 Mg Tablet (Losartan) ..... Take 1 tablet by mouth once daily Metoprolol Tartrate 25 Mg Tablet (Metoprolol tartrate) ..... Take 1 tablet by mouth twice daily Amlodipine 5 Mg Tablet (Amlodipine) ..... Take 1 tablet by mouth once daily Georges Rachel MD [id number],S, H er updated medication list for this problem includes: Metoprolol Tartrate 25 Mg Tablet (Metoprolol tartrate) ..... Take 1 tablet by mouth twice daily Amlodipine 5 Mg Tablet (Amlodipine) ..... Take 1 tablet by mouth once daily Georges Rachel MD [id number],S, H er updated medication list for this problem includes: Metoprolol Tartrate 25 Mg Tablet (Metoprolol tartrate) ..... Take 1 tablet by mouth twice daily Georges Rachel MD [id number],B, H er updated medication list for this problem includes: Losartan 100 Mg Tablet (Losartan) ..... Take 1 tablet by mouth once daily Metoprolol Tartrate 25 Mg Tablet (Metoprolol tartrate) ..... Take 1 tablet by mouth twice daily Amlodipine 5 Mg Tablet (Amlodipine) ..... Take 1 tablet by mouth once daily BP today: 134/62 P rior BP: 144/73 (02/04/2022) Georges Rachel MD [id number],S, H er updated medication list for this problem includes: Metoprolol Tartrate 25 Mg Tablet (Metoprolol tartrate) ..... Take 1 tablet by mouth twice daily Amlodipine 5 Mg Tablet (Amlodipine) ..... Take 1 tablet by mouth once daily Georges Rachel MD [id number],S, H er updated medication list for this problem includes: Ezetimibe 10 Mg Tablet (Ezetimibe) ..... Take 1 tablet by mouth once daily Atorvastatin 80 Mg Tablet (Atorvastatin) ..... Take 1 tablet by mouth once daily Georges Rachel MD [id number],S, H er updated medication list for this problem includes: Metoprolol Tartrate 25 Mg Tablet (Metoprolol tartrate) ..... Take 1 tablet by mouth twice daily Georges Rachel MD [id number],S, Georges Rushing ra, MD [id number],S, Georges Rushing ra, MD [id number],B, Georges Rushing ra, MD [id number],S, s wellin well controlled with support shayy Rachel MD [id number],S, B P today: 144/73 P rior BP: 129/65 (08/06/2021) Her updated medication list for this problem includes: Metoprolol Tartrate 25 Mg Tablet (Metoprolol tartrate) ..... 1 tablet twice a day Losartan 100 Mg Tablet (Losartan) ..... Take 1 tablet by mouth once a day Amlodipine 5 Mg Tablet (Amlodipine) ..... 1 by mouth once a day Georges Rachel MD [id number],S, s table and asymptomatic Her updated medication list for this problem includes: Metoprolol Tartrate 25 Mg Tablet (Metoprolol tartrate) ..... 1 tablet twice a day Amlodipine 5 Mg Tablet (Amlodipine) ..... 1 by mouth once a day Georges Rachel MD [id number],S, H er updated medication list for this problem includes: Atorvastatin 80 Mg Tablet (Atorvastatin) ..... 1 tablet once a day Ezetimibe 10 Mg Tablet (Ezetimibe) ..... Take 1 tablet by mouth once a day Georges Rachel MD [id number],S, o ff amio d/t toxicity S R on EKG today a fib only seen preop Her updated medication list for this problem includes: Metoprolol Tartrate 25 Mg Tablet (Metoprolol tartrate) ..... 1 tablet twice a day Georges Rachel MD [id number],S, w eight loss, regular exercise encouraged Georges Rachel MD [id number],B, Georges Rushing ra, MD [id number],S, H er updated medication list for this problem includes: Atorvastatin 80 Mg Tablet (Atorvastatin) ..... 1 tablet once a day Ezetimibe 10 Mg Tablet (Ezetimibe) ..... Take 1 tablet by mouth once a day Georges Rachel MD [id number],S, o ff amio d/t toxicity S R on EKG today Her updated medication list for this problem includes: Adult Aspirin Ec Low Strength 81 Mg Oral Tablet Delayed Release (Aspirin) ..... One po daily Metoprolol Tartrate 25 Mg Oral Tablet (Metoprolol tartrate) ..... One tab. twice daily Georges Rachel MD [id number],S, B P today: 129/65 P rior BP: 138/80 (04/09/2021) Her updated medication list for this problem includes: Metoprolol Tartrate 25 Mg Tablet (Metoprolol tartrate) ..... 1 tablet twice a day Losartan 100 Mg Tablet (Losartan) ..... Take 1 tablet by mouth once a day Amlodipine 5 Mg Tablet (Amlodipine) ..... 1 by mouth once a day Georges Rachel MD [id number],S, s table and asymptomatic Her updated medication list for this problem includes: Metoprolol Tartrate 25 Mg Tablet (Metoprolol tartrate) ..... 1 tablet twice a day Amlodipine 5 Mg Tablet (Amlodipine) ..... 1 by mouth once a day Georges Rachel MD Cardiology Georges Montalvo Cardiology Georges Montalvo Cardiology Georges Montalvo Cardiology:This visi t has been a part of the consistent, comprehensive, and ongoing management of the chronic medical condition(s) listed above for the patient. H er updated medication list for this problem includes: Ezetimibe 10 Mg Tablet (Ezetimibe) ..... Take 1 tablet by mouth once daily Atorvastatin 80 Mg Tablet (Atorvastatin) ..... Take 1 tablet by mouth once daily Georges Rachel MD Cardiology:This visi t has been a part of the consistent, comprehensive, and ongoing management of the chronic medical condition(s) listed above for the patient. B P today: 118/70 P rior BP: 114/72 (05/10/2024) Labs Reviewed: C hol: 123 (02/12/2023) HDL: 47 (02/12/2023) LDL: 53 MG/DL (CALC) (02/12/2023) T (02/12/2023) Her updated medication list for this problem includes: Amlodipine 5 Mg Tablet (Amlodipine) ..... Take 1 tablet by mouth once daily Losartan 100 Mg Tablet (Losartan) ..... Take 1 tablet by mouth once daily Metoprolol Tartrate 25 Mg Tablet (Metoprolol tartrate) ..... Take 1 tablet by mouth twice daily Georges Rachel MD Cardiology:This visi t has been a part of the consistent, comprehensive, and ongoing management of the chronic medical condition(s) listed above for the patient. H er updated medication list for this problem includes: Amlodipine 5 Mg Tablet (Amlodipine) ..... Take 1 tablet by mouth once daily Metoprolol Tartrate 25 Mg Tablet (Metoprolol tartrate) ..... Take 1 tablet by mouth twice daily Georges Rachel MD Cardiology:This visi t has been a part of the consistent, comprehensive, and ongoing management of the chronic medical condition(s) listed above for the patient. BP today: 114/72 P rior BP: 118/74 (11/10/2023) Her updated medication list for this problem includes: Metoprolol Tartrate 25 Mg Tablet (Metoprolol tartrate) ..... Take 1 tablet by mouth twice daily Amlodipine 5 Mg Tablet (Amlodipine) ..... Take 1 tablet by mouth once daily Losartan 100 Mg Tablet (Losartan) ..... Take 1 tablet by mouth once daily Georges Rachel MD Cardiology:This visi t has been a part of the consistent, comprehensive, and ongoing management of the chronic medical condition(s) listed above for the patient. Her updated medication list for this problem includes: Metoprolol Tartrate 25 Mg Tablet (Metoprolol tartrate) ..... Take 1 tablet by mouth twice daily Amlodipine 5 Mg Tablet (Amlodipine) ..... Take 1 tablet by mouth once daily Georges Rachel MD Cardiology:This visi t has been a part of the consistent, comprehensive, and ongoing management of the chronic medical condition(s) listed above for the patient. Her updated medication list for this problem includes: Atorvastatin 80 Mg Tablet (Atorvastatin) ..... Take 1 tablet by mouth once daily Ezetimibe 10 Mg Tablet (Ezetimibe) ..... Take 1 tablet by mouth once daily Georges Rachel MD Cardiology:This visi t has been a part of the consistent, comprehensive, and ongoing management of the chronic medical condition(s) listed above for the patient. Her updated medication list for this problem includes: Metoprolol Tartrate 25 Mg Tablet (Metoprolol tartrate) ..... Take 1 tablet by mouth twice daily Georges Rachel MD Cardiology:This visi t has been a part of the consistent, comprehensive, and ongoing management of the chronic medical condition(s) listed above for the patient. Georges Rachel MD Cardiology Georges Montalvo Cardiology Georges Montalvo Cardiology: H er updated medication list for this problem includes: Ezetimibe 10 Mg Tablet (Ezetimibe) ..... Take 1 tablet by mouth once daily Atorvastatin 80 Mg Tablet (Atorvastatin) ..... Take 1 tablet by mouth once daily Georges Rachel MD Cardiology: H er updated medication list for this problem includes: Metoprolol Tartrate 25 Mg Tablet (Metoprolol tartrate) ..... Take 1 tablet by mouth twice daily Amlodipine 5 Mg Tablet (Amlodipine) ..... Take 1 tablet by mouth once daily Georges Rachel MD Cardiology: H er updated medication list for this problem includes: Losartan 100 Mg Tablet (Losartan) ..... Take 1 tablet by mouth once daily Metoprolol Tartrate 25 Mg Tablet (Metoprolol tartrate) ..... Take 1 tablet by mouth twice daily Amlodipine 5 Mg Tablet (Amlodipine) ..... Take 1 tablet by mouth once daily Georges Rachel MD Cardiology Georges Montalvo Cardiology: H er updated medication list for this problem includes: Metoprolol Tartrate 25 Mg Tablet (Metoprolol tartrate) ..... Take 1 tablet by mouth twice daily Georges Rachel MD Cardiology Georges Montalvo Cardiology Georges Montalvo Cardiology Georges Montalvo Cardiology: H er updated medication list for this problem includes: Ezetimibe 10 Mg Tablet (Ezetimibe) ..... Take 1 tablet by mouth once daily Atorvastatin 80 Mg Tablet (Atorvastatin) ..... Take 1 tablet by mouth once daily Georges Rachel MD Cardiology: H er updated medication list for this problem includes: Metoprolol Tartrate 25 Mg Tablet (Metoprolol tartrate) ..... Take 1 tablet by mouth twice daily Amlodipine 5 Mg Tablet (Amlodipine) ..... Take 1 tablet by mouth once daily Georges Rachel MD Cardiology: B P today: 111/70 P rior BP: 120/67 (02/03/2023) Her updated medication list for this problem includes: Losartan 100 Mg Tablet (Losartan) ..... Take 1 tablet by mouth once daily Metoprolol Tartrate 25 Mg Tablet (Metoprolol tartrate) ..... Take 1 tablet by mouth twice daily Amlodipine 5 Mg Tablet (Amlodipine) ..... Take 1 tablet by mouth once daily Georges Rachel MD Cardiology Georges Montalvo Cardiology Georges Montalvo Cardiology Georges Montalvo Cardiology Georges Montalvo Cardiology Georges Montalvo Cardiology: H er updated medication list for this problem includes: Ezetimibe 10 Mg Tablet (Ezetimibe) ..... Take 1 tablet by mouth once daily Atorvastatin 80 Mg Tablet (Atorvastatin) ..... Take 1 tablet by mouth once daily Georges Rachel MD Cardiology: B P today: 120/67 P rior BP: 134/62 (08/05/2022) Her updated medication list for this problem includes: Losartan 100 Mg Tablet (Losartan) ..... Take 1 tablet by mouth once daily Metoprolol Tartrate 25 Mg Tablet (Metoprolol tartrate) ..... Take 1 tablet by mouth twice daily Amlodipine 5 Mg Tablet (Amlodipine) ..... Take 1 tablet by mouth once daily Georges Rachel MD Cardiology: H er updated medication list for this problem includes: Metoprolol Tartrate 25 Mg Tablet (Metoprolol tartrate) ..... Take 1 tablet by mouth twice daily Amlodipine 5 Mg Tablet (Amlodipine) ..... Take 1 tablet by mouth once daily Georges Rachel MD Cardiology: H er updated medication list for this problem includes: Metoprolol Tartrate 25 Mg Tablet (Metoprolol tartrate) ..... Take 1 tablet by mouth twice daily Georges Rachel MD Cardiology: H er updated medication list for this problem includes: Losartan 100 Mg Tablet (Losartan) ..... Take 1 tablet by mouth once daily Metoprolol Tartrate 25 Mg Tablet (Metoprolol tartrate) ..... Take 1 tablet by mouth twice daily Amlodipine 5 Mg Tablet (Amlodipine) ..... Take 1 tablet by mouth once daily BP today: 134/62 P rior BP: 144/73 (02/04/2022) Georges Rachel MD Cardiology: H er updated medication list for this problem includes: Metoprolol Tartrate 25 Mg Tablet (Metoprolol tartrate) ..... Take 1 tablet by mouth twice daily Amlodipine 5 Mg Tablet (Amlodipine) ..... Take 1 tablet by mouth once daily Georges Rachel MD Cardiology: H er updated medication list for this problem includes: Ezetimibe 10 Mg Tablet (Ezetimibe) ..... Take 1 tablet by mouth once daily Atorvastatin 80 Mg Tablet (Atorvastatin) ..... Take 1 tablet by mouth once daily Georges Rachel MD Cardiology: H er updated medication list for this problem includes: Metoprolol Tartrate 25 Mg Tablet (Metoprolol tartrate) ..... Take 1 tablet by mouth twice daily Georges Rachel MD Cardiology Georges Montalvo Cardiology Georges Montalvo Cardiology Georges Montalvo Cardiology: s wellin well controlled with support shayy Rachel MD Cardiology: B P today: 144/73 P rior BP: 129/65 (08/06/2021) Her updated medication list for this problem includes: Metoprolol Tartrate 25 Mg Tablet (Metoprolol tartrate) ..... 1 tablet twice a day Losartan 100 Mg Tablet (Losartan) ..... Take 1 tablet by mouth once a day Amlodipine 5 Mg Tablet (Amlodipine) ..... 1 by mouth once a day Georges Rachel MD Cardiology: s table and asymptomatic Her updated medication list for this problem includes: Metoprolol Tartrate 25 Mg Tablet (Metoprolol tartrate) ..... 1 tablet twice a day Amlodipine 5 Mg Tablet (Amlodipine) ..... 1 by mouth once a day Georges Rachel MD Cardiology: H er updated medication list for this problem includes: Atorvastatin 80 Mg Tablet (Atorvastatin) ..... 1 tablet once a day Ezetimibe 10 Mg Tablet (Ezetimibe) ..... Take 1 tablet by mouth once a day Georges Rachel MD Cardiology: o ff amio d/t toxicity S R on EKG today a fib only seen preop Her updated medication list for this problem includes: Metoprolol Tartrate 25 Mg Tablet (Metoprolol tartrate) ..... 1 tablet twice a day Georges Rachel MD Cardiology: w eight loss, regular exercise encouraged Georges Rachel MD Cardiology Georges Montalvo Cardiology: H er updated medication list for this problem includes: Atorvastatin 80 Mg Tablet (Atorvastatin) ..... 1 tablet once a day Ezetimibe 10 Mg Tablet (Ezetimibe) ..... Take 1 tablet by mouth once a day Georges Rachel MD Cardiology: o ff amio d/t toxicity S R on EKG today Her updated medication list for this problem includes: Adult Aspirin Ec Low Strength 81 Mg Oral Tablet Delayed Release (Aspirin) ..... One po daily Metoprolol Tartrate 25 Mg Oral Tablet (Metoprolol tartrate) ..... One tab. twice daily Georges Rachel MD Cardiology: B P today: 129/65 P rior BP: 138/80 (04/09/2021) Her updated medication list for this problem includes: Metoprolol Tartrate 25 Mg Tablet (Metoprolol tartrate) ..... 1 tablet twice a day Losartan 100 Mg Tablet (Losartan) ..... Take 1 tablet by mouth once a day Amlodipine 5 Mg Tablet (Amlodipine) ..... 1 by mouth once a day Georges Rachel MD Cardiology: s table and asymptomatic Her updated medication list for this problem includes: Metoprolol Tartrate 25 Mg Tablet (Metoprolol tartrate) ..... 1 tablet twice a day Amlodipine 5 Mg Tablet (Amlodipine) ..... 1 by mouth once a day Georges Rachel MD Cardiology follow up Georges graff MD Cardiology follow up : L DL 60 Her updated medication list for this problem includes: Atorvastatin Calcium 80 Mg Oral Tablet (Atorvastatin calcium) ..... One tab daily Ezetimibe 10 Mg Oral Tablet (Ezetimibe) ..... Take 1 tablet by mouth once daily Georges Rachel MD Cardiology follow up : marco antonio love venous dopplers Georges Rachel MD Cardiology follow up : o ff amio d/t toxicity S R on EKG today Her updated medication list for this problem includes: Adult Aspirin Ec Low Strength 81 Mg Oral Tablet Delayed Release (Aspirin) ..... One po daily Metoprolol Tartrate 25 Mg Oral Tablet (Metoprolol tartrate) ..... One tab. twice daily Georges Rachel MD Cardiology follow up : B P today: 138/80 P rior BP: 142/80 (10/09/2020) Her updated medication list for this problem includes: Amlodipine Besylate 5 Mg Oral Tablet (Amlodipine besylate) ..... One po daily Losartan 100mg Tab (Losartan potassium) ..... Take 1 tablet by mouth once daily Adult Aspirin Ec Low Strength 81 Mg Oral Tablet Delayed Release (Aspirin) ..... One po daily Metoprolol Tartrate 25 Mg Oral Tablet (Metoprolol tartrate) ..... One tab. twice daily Georges Rachel MD Cardiology follow up : s table and asymptomatic Her updated medication list for this problem includes: Amlodipine Besylate 5 Mg Oral Tablet (Amlodipine besylate) ..... One po daily Adult Aspirin Ec Low Strength 81 Mg Oral Tablet Delayed Release (Aspirin) ..... One po daily Metoprolol Tartrate 25 Mg Oral Tablet (Metoprolol tartrate) ..... One tab. twice daily Georges Rachel MD Cardiology Follow up Georges graff MD Cardiology Follow up : H er updated medication list for this problem includes: Atorvastatin Calcium 80 Mg Oral Tablet (Atorvastatin calcium) ..... One tab daily Ezetimibe 10 Mg Oral Tablet (Ezetimibe) ..... Take 1 tablet by mouth once daily Georges Rachel MD Cardiology Follow up : p t. only had mild KADE on testing so not using CPAP. weight increasing. Georges Rachel MD Cardiology Follow up : B P today: 142/80 P rior BP: 124/82 (04/10/2020) Her updated medication list for this problem includes: Amlodipine Besylate 5 Mg Oral Tablet (Amlodipine besylate) ..... One po daily Losartan 100mg Tab (Losartan potassium) ..... Take 1 tablet by mouth once daily Adult Aspirin Ec Low Strength 81 Mg Oral Tablet Delayed Release (Aspirin) ..... One po daily Metoprolol Tartrate 25 Mg Oral Tablet (Metoprolol tartrate) ..... One tab. twice daily Georges Rachel MD Cardiology Follow up : s table and asymptomatic Her updated medication list for this problem includes: Amlodipine Besylate 5 Mg Oral Tablet (Amlodipine besylate) ..... One po daily Adult Aspirin Ec Low Strength 81 Mg Oral Tablet Delayed Release (Aspirin) ..... One po daily Metoprolol Tartrate 25 Mg Oral Tablet (Metoprolol tartrate) ..... One tab. twice daily Georges Rachel MD Cardiology: s table and asymptomatic Her updated medication list for this problem includes: Amlodipine Besylate 5 Mg Oral Tablet (Amlodipine besylate) ..... One po daily Adult Aspirin Ec Low Strength 81 Mg Oral Tablet Delayed Release (Aspirin) ..... One po daily Metoprolol Tartrate 25 Mg Oral Tablet (Metoprolol tartrate) ..... One tab. twice daily Herrera Montaño Cardiology: p t. only had mild KADE on testing so not using CPAP. weight increasing. Herrera Montaño Cardiology: H er updated medication list for this problem includes: Lipitor 40 Mg Oral Tablet (Atorvastatin calcium) ..... One tab. daily Ezetimibe 10 Mg Oral Tablet (Ezetimibe) ..... One tab daily Herrera Montaño Cardiology: B P today: 124/82 P rior BP: 128/80 (01/10/2020) Her updated medication list for this problem includes: Amlodipine Besylate 5 Mg Oral Tablet (Amlodipine besylate) ..... One po daily Losartan 100mg Tab (Losartan potassium) ..... Take 1 tablet by mouth once daily Adult Aspirin Ec Low Strength 81 Mg Oral Tablet Delayed Release (Aspirin) ..... One po daily Metoprolol Tartrate 25 Mg Oral Tablet (Metoprolol tartrate) ..... One tab. twice daily Herrera Montaño Cardiology follow up : H er updated medication list for this problem includes: Adult Aspirin Ec Low Strength 81 Mg Oral Tablet Delayed Release (Aspirin) ..... One po daily Amiodarone Hcl 200 Mg Oral Tablet (Amiodarone hcl) ..... One tab. daily Metoprolol Tartrate 25 Mg Oral Tablet (Metoprolol tartrate) ..... One tab. twice daily Georges Rachel MD Cardiology follow up : H er updated medication list for this problem includes: Lipitor 40 Mg Oral Tablet (Atorvastatin calcium) ..... One tab. daily Ezetimibe 10 Mg Oral Tablet (Ezetimibe) ..... One tab daily Georges Rachel MD Cardiology follow up : B P today: 128/80 P rior BP: 118/70 (04/05/2019) Her updated medication list for this problem includes: Amlodipine Besylate 5 Mg Oral Tablet (Amlodipine besylate) ..... One po daily Losartan 100mg Tab (Losartan potassium) ..... Take 1 tablet by mouth once daily Adult Aspirin Ec Low Strength 81 Mg Oral Tablet Delayed Release (Aspirin) ..... One po daily Metoprolol Tartrate 25 Mg Oral Tablet (Metoprolol tartrate) ..... One tab. twice daily Georges Rachel MD Cardiology follow up : s table and asymptomatic Her updated medication list for this problem includes: Amlodipine Besylate 5 Mg Oral Tablet (Amlodipine besylate) ..... One po daily Adult Aspirin Ec Low Strength 81 Mg Oral Tablet Delayed Release (Aspirin) ..... One po daily Metoprolol Tartrate 25 Mg Oral Tablet (Metoprolol tartrate) ..... One tab. twice daily Georges Rachel MD Cardiology Georges Montalvo Cardiology: p t. only had mild KADE on testing so not using CPAP. weight increasing. Georges Rachel MD Cardiology: B P today: 118/70 P rior BP: 122/82 (12/07/2018) Her updated medication list for this problem includes: Amlodipine Besylate 5 Mg Oral Tablet (Amlodipine besylate) ..... One po daily Losartan Potassium 100 Mg Oral Tablet (Losartan potassium) ..... One po daily Adult Aspirin Ec Low Strength 81 Mg Oral Tablet Delayed Release (Aspirin) ..... One po daily Metoprolol Tartrate 25 Mg Oral Tablet (Metoprolol tartrate) ..... One tab. twice daily Georges Rachel MD Cardiology: H er updated medication list for this problem includes: Lipitor 40 Mg Oral Tablet (Atorvastatin calcium) ..... One tab. daily Ezetimibe 10 Mg Oral Tablet (Ezetimibe) ..... One tab daily Georges Rachel MD Cardiology: H er updated medication list for this problem includes: Adult Aspirin Ec Low Strength 81 Mg Oral Tablet Delayed Release (Aspirin) ..... One po daily Amiodarone Hcl 200 Mg Oral Tablet (Amiodarone hcl) ..... One tab. daily Metoprolol Tartrate 25 Mg Oral Tablet (Metoprolol tartrate) ..... One tab. twice daily Georges Rachel MD Cardiology: s table and asymptomatic Her updated medication list for this problem includes: Amlodipine Besylate 5 Mg Oral Tablet (Amlodipine besylate) ..... One po daily Adult Aspirin Ec Low Strength 81 Mg Oral Tablet Delayed Release (Aspirin) ..... One po daily Metoprolol Tartrate 25 Mg Oral Tablet (Metoprolol tartrate) ..... One tab. twice daily Georges Rachel MD Cardiology follow up : C HOL: 134 (12/01/2018) HDL: 61 (12/01/2018) H er updated medication list for this problem includes: Amlodipine Besylate 5 Mg Oral Tablet (Amlodipine besylate) ..... One po daily Adult Aspirin Ec Low Strength 81 Mg Oral Tablet Delayed Release (Aspirin) ..... One po daily Metoprolol Tartrate 25 Mg Oral Tablet (Metoprolol tartrate) ..... One tab. twice daily Georges Rachel MD Cardiology follow up : B P today: 122/82 P rior BP: 126/80 (06/08/2018) Labs Reviewed: C hol: 134 (12/01/2018) HDL: 61 (12/01/2018) Her updated medication list for this problem includes: Amlodipine Besylate 5 Mg Oral Tablet (Amlodipine besylate) ..... One po daily Losartan Potassium 100 Mg Oral Tablet (Losartan potassium) ..... One po daily Adult Aspirin Ec Low Strength 81 Mg Oral Tablet Delayed Release (Aspirin) ..... One po daily Metoprolol Tartrate 25 Mg Oral Tablet (Metoprolol tartrate) ..... One tab. twice daily Georges Rachel MD Cardiology follow up :In sinus rhythm. H er updated medication list for this problem includes: Adult Aspirin Ec Low Strength 81 Mg Oral Tablet Delayed Release (Aspirin) ..... One po daily Amiodarone Hcl 200 Mg Oral Tablet (Amiodarone hcl) ..... One tab. daily Metoprolol Tartrate 25 Mg Oral Tablet (Metoprolol tartrate) ..... One tab. twice daily Georges Rachel MD Cardiology follow up:Strongly re commend weigtht loss. Georges Rachel MD Cardiology follow up :Lipids at target. H er updated medication list for this problem includes: Lipitor 40 Mg Oral Tablet (Atorvastatin calcium) ..... One tab. daily Ezetimibe 10 Mg Oral Tablet (Ezetimibe) ..... One tab daily Georges Rachel MD Cardiology follow up :Mild on last sleep study. Recommend weight loss. Georges Rachel MD Cardiology follow up :Oxygen saturation mildly low at 91% today. Hx. UTI with hematuria. WIll check CBC. Georges Rachel MD Cardiology: H er updated medication list for this problem includes: Amlodipine Besylate 5 Mg Oral Tablet (Amlodipine besylate) ..... One po daily Adult Aspirin Ec Low Strength 81 Mg Oral Tablet Delayed Release (Aspirin) ..... One po daily Metoprolol Tartrate 25 Mg Oral Tablet (Metoprolol tartrate) ..... One tab. twice daily Georges Rachel MD Cardiology: H er updated medication list for this problem includes: Amlodipine Besylate 5 Mg Oral Tablet (Amlodipine besylate) ..... One po daily Losartan Potassium 100 Mg Oral Tablet (Losartan potassium) ..... One po daily Adult Aspirin Ec Low Strength 81 Mg Oral Tablet Delayed Release (Aspirin) ..... One po daily Metoprolol Tartrate 25 Mg Oral Tablet (Metoprolol tartrate) ..... One tab. twice daily BP today: 126/80 P rior BP: 122/70 (12/08/2017) Georges Rachel MD Cardiology: H er updated medication list for this problem includes: Adult Aspirin Ec Low Strength 81 Mg Oral Tablet Delayed Release (Aspirin) ..... One po daily Amiodarone Hcl 200 Mg Oral Tablet (Amiodarone hcl) ..... One tab. daily Metoprolol Tartrate 25 Mg Oral Tablet (Metoprolol tartrate) ..... One tab. twice daily Georges Rachel MD Cardiology Georges Montalvo Cardiology:Up 15 lbs. Georges wang MD Cardiology Georges Montalvo Cardiology: H er updated medication list for this problem includes: Lipitor 40 Mg Oral Tablet (Atorvastatin calcium) ..... One tab. daily Ezetimibe 10 Mg Oral Tablet (Ezetimibe) ..... One tab daily Georges Rachel MD Cardiology Georges Montalvo Cardiology: H er updated medication list for this problem includes: Amlodipine Besylate 5 Mg Oral Tablet (Amlodipine besylate) ..... One po daily Losartan Potassium 100 Mg Oral Tablet (Losartan potassium) ..... One po daily Adult Aspirin Ec Low Strength 81 Mg Oral Tablet Delayed Release (Aspirin) ..... One po daily Metoprolol Tartrate 25 Mg Oral Tablet (Metoprolol tartrate) ..... One tab. twice daily BP today: 122/70 P rior BP: 132/70 (06/16/2017) Labs Reviewed: C hol: 153.0 (06/17/2017) HDL: 68.0 (06/17/2017) T.0 (06/17/2017) Georges Rachel MD Cardiology: H er updated medication list for this problem includes: Adult Aspirin Ec Low Strength 81 Mg Oral Tablet Delayed Release (Aspirin) ..... One po daily Amiodarone Hcl 200 Mg Oral Tablet (Amiodarone hcl) ..... One tab. daily Metoprolol Tartrate 25 Mg Oral Tablet (Metoprolol tartrate) ..... One tab. twice daily Georges Rachel MD Cardiology Georges Montalvo Cardiology Georges Montalvo Cardiology Georges Montalvo Cardiology Georges Montalvo Cardiology: H er updated medication list for this problem includes: Lipitor 40 Mg Oral Tablet (Atorvastatin calcium) ..... One tab. daily Ezetimibe 10 Mg Oral Tablet (Ezetimibe) ..... One tab daily C HOL: 153.0 (06/17/2017) HDL: 68.0 (06/17/2017) T.0 (06/17/2017) Georges Rachel MD Cardiology Georges Montalvo Cardiology Follow up : H er updated medication list for this problem includes: Amlodipine Besylate 5 Mg Oral Tabs (Amlodipine besylate) ..... One po daily Adult Aspirin Ec Low Strength 81 Mg Oral Tbec (Aspirin) ..... One po daily Metoprolol Tartrate 25 Mg Tabs (Metoprolol tartrate) ..... One tab. twice daily Georges Rachel MD Cardiology Follow up : H er updated medication list for this problem includes: Amlodipine Besylate 5 Mg Oral Tabs (Amlodipine besylate) ..... One po daily Losartan Potassium 100 Mg Oral Tabs (Losartan potassium) ..... One po daily Adult Aspirin Ec Low Strength 81 Mg Oral Tbec (Aspirin) ..... One po daily Metoprolol Tartrate 25 Mg Tabs (Metoprolol tartrate) ..... One tab. twice daily BP today: 132/70 P rior BP: 110/78 (03/10/2017) Labs Reviewed: C hol: 166 (09/10/2016) HDL: 57 (09/10/2016) LDL: 78 MG/DL (CALC) (09/10/2016) T (09/10/2016) Georges Rachel MD Cardiology Follow up Georges graff MD Cardiology Follow up Georges graff MD Cardiology Follow up : H er updated medication list for this problem includes: Lipitor 40 Mg Tabs (Atorvastatin calcium) ..... One tab. daily Zetia 10 Mg Tabs (Ezetimibe) ..... One tab. daily C HOL: 166 (09/10/2016) LDL: 78 MG/DL (CALC) (09/10/2016) HDL: 57 (09/10/2016) T (09/10/2016) Georges Rachel MD Cardiology Follow up :mild by last home sleep study, no daytime sxs, BP controlled, not using cpap, continuing to lose weight Georges Rachel MD Cardiology Follow up : H er updated medication list for this problem includes: Amlodipine Besylate 5 Mg Oral Tabs (Amlodipine besylate) ..... One po daily Adult Aspirin Ec Low Strength 81 Mg Oral Tbec (Aspirin) ..... One po daily Metoprolol Tartrate 25 Mg Tabs (Metoprolol tartrate) ..... One tab. twice daily Georges Rachel MD Cardiology Follow up : H er updated medication list for this problem includes: Amlodipine Besylate 5 Mg Oral Tabs (Amlodipine besylate) ..... One po daily Losartan Potassium 100 Mg Oral Tabs (Losartan potassium) ..... One po daily Adult Aspirin Ec Low Strength 81 Mg Oral Tbec (Aspirin) ..... One po daily Metoprolol Tartrate 25 Mg Tabs (Metoprolol tartrate) ..... One tab. twice daily BP today: 110/78 P rior BP: 173/89 (12/09/2016) Labs Reviewed: C hol: 166 (09/10/2016) HDL: 57 (09/10/2016) LDL: 78 MG/DL (CALC) (09/10/2016) T (09/10/2016) Georges Rachel MD Cardiology Follow up : H er updated medication list for this problem includes: Adult Aspirin Ec Low Strength 81 Mg Oral Tbec (Aspirin) ..... One po daily Amiodarone Hcl 200 Mg Tabs (Amiodarone hcl) ..... One tab. daily Metoprolol Tartrate 25 Mg Tabs (Metoprolol tartrate) ..... One tab. twice daily Georges Rachel MD Cardiology Follow up:lost 16 lbs some 2-2016 Georges Rachel MD Cardiology Follow up : H er updated medication list for this problem includes: Lipitor 40 Mg Tabs (Atorvastatin calcium) ..... One tab. daily Zetia 10 Mg Tabs (Ezetimibe) ..... One tab. daily C HOL: 166 (09/10/2016) LDL: 78 MG/DL (CALC) (09/10/2016) HDL: 57 (09/10/2016) T (09/10/2016) Georges Rachel MD Cardiology: B P today: 173/89 P rior BP: 162/102 (09/09/2016) Labs Reviewed: C hol: 166 (09/10/2016) HDL: 57 (09/10/2016) LDL: 78 MG/DL (CALC) (09/10/2016) T (09/10/2016) Her updated medication list for this problem includes: Amlodipine Besylate 5 Mg Oral Tabs (Amlodipine besylate) ..... One po daily added today Losartan Potassium 100 Mg Oral Tabs (Losartan potassium) ..... One po daily Adult Aspirin Ec Low Strength 81 Mg Oral Tbec (Aspirin) ..... One po daily Metoprolol Tartrate 25 Mg Tabs (Metoprolol tartrate) ..... One tab. twice daily Georges Rachel MD Cardiology: H er updated medication list for this problem includes: Adult Aspirin Ec Low Strength 81 Mg Oral Tbec (Aspirin) ..... One po daily Amiodarone Hcl 200 Mg Tabs (Amiodarone hcl) ..... One tab. daily Metoprolol Tartrate 25 Mg Tabs (Metoprolol tartrate) ..... One tab. twice daily Georges Rachel MD Cardiology Georges Montalvo Cardiology Georges Montalvo Cardiology:will cons ider fitting for cpap after she gets her new insurance. Georges Rachel MD Cardiology: H er updated medication list for this problem includes: Lipitor 40 Mg Tabs (Atorvastatin calcium) ..... One tab. daily Zetia 10 Mg Tabs (Ezetimibe) ..... One tab. daily C HOL: 166 (09/10/2016) LDL: 78 MG/DL (CALC) (09/10/2016) HDL: 57 (09/10/2016) T (09/10/2016) Georges Rachel MD Cardiology Follow up : H er updated medication list for this problem includes: Adult Aspirin Ec Low Strength 81 Mg Oral Tbec (Aspirin) ..... One po daily Metoprolol Tartrate 25 Mg Tabs (Metoprolol tartrate) ..... One tab. twice daily Georges Rachel MD Cardiology Follow up :check lipid panel H er updated medication list for this problem includes: Lipitor 40 Mg Tabs (Atorvastatin calcium) ..... One tab. daily Zetia 10 Mg Tabs (Ezetimibe) ..... One tab. daily C HOL: 134 (09/11/2015) LDL: 59 (09/11/2015) HDL: 52 (09/11/2015) T (09/11/2015) Georges Rachel MD Cardiology Follow up : H er updated medication list for this problem includes: Adult Aspirin Ec Low Strength 81 Mg Oral Tbec (Aspirin) ..... One po daily Cozaar 50 Mg Oral Tabs (Losartan potassium) ..... One po daily will increase to 100 mg p daily Metoprolol Tartrate 25 Mg Tabs (Metoprolol tartrate) ..... One tab. twice daily BP today: 162/102 P rior BP: 142/69 (03/11/2016) Labs Reviewed: C hol: 134 (09/11/2015) HDL: 52 (09/11/2015) LDL: 59 (09/11/2015) T (09/11/2015) Georges Rachel MD Cardiology Follow u p : H er updated medication list for this problem includes: Adult Aspirin Ec Low Strength 81 Mg Oral Tbec (Aspirin) ..... One po daily Amiodarone Hcl 200 Mg Tabs (Amiodarone hcl) ..... One tab. daily Metoprolol Tartrate 25 Mg Tabs (Metoprolol tartrate) ..... One tab. twice daily Georges Rachel MD Cardiology Follow up Georges graff MD Cardiology: H er updated medication list for this problem includes: Metoprolol Tartrate 25 Mg Tabs (Metoprolol tartrate) ..... One tab. twice daily C HOL: 134 (09/11/2015) LDL: 59 (09/11/2015) HDL: 52 (09/11/2015) T (09/11/2015) Georges Rachel MD Cardiology: H er updated medication list for this problem includes: Lipitor 40 Mg Tabs (Atorvastatin calcium) ..... One tab. daily Zetia 10 Mg Tabs (Ezetimibe) ..... One tab. daily C HOL: 134 (09/11/2015) LDL: 59 (09/11/2015) HDL: 52 (09/11/2015) T (09/11/2015) Georges Rachel MD Cardiology: B P today: 142/69 P rior BP: 153/79 (09/11/2015) Labs Reviewed: C hol: 134 (09/11/2015) HDL: 52 (09/11/2015) LDL: 59 (09/11/2015) T (09/11/2015) Her updated medication list for this problem includes: Cozaar 50 Mg Oral Tabs (Losartan potassium) ..... One po daily Metoprolol Tartrate 25 Mg Tabs (Metoprolol tartrate) ..... One tab. twice daily Georges Rachel MD Cardiology:no new sxs Georges wang MD Cardiology:no palpitations Reece Rachel MD Cardiology:lost 2 lbs Georges wang MD Cardiology Georges Montalvo Cardiology:CHOL: 134 (09/11/2015) LDL: 59 (09/11/2015) HDL: 52 (09/11/2015) T (09/11/2015) Georges Rachel MD Cardiology: B P today: 153/79 will monitor at home P rior BP: 139/76 (06/12/2015) Labs Reviewed: C hol: 134 (09/11/2015) HDL: 52 (09/11/2015) LDL: 59 (09/11/2015) T (09/11/2015) Georges Rachel MD Cardiology Georges Montalvo Cardiology Georges Montalvo Cardiology Georges Montalvo Cardiology Georges Montalvo Cardiology:lsot 2 lbs Georges wang MD Cardiology:no angina, normal LV on last echo Georges Rachel MD Cardiology:CHOL: 132 (10/03/2014) LDL: 63 (10/03/2014) HDL: 48 (10/03/2014) T (10/03/2014) marco antonio love lipid strip in 3 months Georges Rachel MD Cardiology: B P today: 139/76 P rior BP: 135/75 (12/05/2014) Labs Reviewed: C hol: 132 (10/03/2014) HDL: 48 (10/03/2014) LDL: 63 (10/03/2014) T (10/03/2014) Georges Rachel MD Cardiology:no recurrence Georges Rachel MD Cardiology: H er updated medication list for this problem includes: Amiodarone Hcl 200 Mg Tabs (Amiodarone hcl) ..... One tab. daily Metoprolol Tartrate 25 Mg Tabs (Metoprolol tartrate) ..... One tab. twice daily Eliquis 5 mg po bid Georges Rachel MD Cardiology:cough resolved with s wtich to arb Georges Rachel MD Cardiology Georges Montalvo Cardiology Georges Montalvo Cardiology:gained 9 lbs since . To reduce bread in diet, exercise for weight loss and cardiovasculoar risk reduction Geogres Rachel MD follow up: T he following medications were removed from the medication list: Lisinopril 5 Mg Tabs (Lisinopril) ..... One tab. daily Her updated medication list for this problem includes: Lipitor 40 Mg Tabs (Atorvastatin calcium) ..... One tab. daily Metoprolol Tartrate 25 Mg Tabs (Metoprolol tartrate) ..... One tab. twice daily Zetia 10 Mg Tabs (Ezetimibe) ..... One tab. daily Georges Rachel MD follow up: H er updated medication list for this problem includes: Lipitor 40 Mg Tabs (Atorvastatin calcium) ..... One tab. daily Zetia 10 Mg Tabs (Ezetimibe) ..... One tab. daily Georges Rachel MD follow up: T he following medications were removed from the medication list: Lisinopril 5 Mg Tabs (Lisinopril) ..... One tab. daily Her updated medication list for this problem includes: Cozaar 50 Mg Oral Tabs (Losartan potassium) ..... One po daily Metoprolol Tartrate 25 Mg Tabs (Metoprolol tartrate) ..... One tab. twice daily BP today: 135/75 P rior BP: 138/81 (10/03/2014) Labs Reviewed: C hol: 132 (10/03/2014) HDL: 48 (10/03/2014) LDL: 63 (10/03/2014) T (10/03/2014) Georges Rachel MD follow up Georges Montalvo follow up: H er updated medication list for this problem includes: Amiodarone Hcl 200 Mg Tabs (Amiodarone hcl) ..... One tab. daily Metoprolol Tartrate 25 Mg Tabs (Metoprolol tartrate) ..... One tab. twice daily Georges Rachel MD follow up: T he following medications were removed from the medication list: Lisinopril 5 Mg Tabs (Lisinopril) ..... One tab. daily Her updated medication list for this problem includes: Amiodarone Hcl 200 Mg Tabs (Amiodarone hcl) ..... One tab. daily Metoprolol Tartrate 25 Mg Tabs (Metoprolol tartrate) ..... One tab. twice daily Georges Rachel MD follow up: H er updated medication list for this problem includes: Aspirin 325 Mg Tabs (Aspirin) ..... One tab. daily Amiodarone Hcl 200 Mg Tabs (Amiodarone hcl) ..... One tab. daily Plavix 75 Mg Tabs (Clopidogrel bisulfate) ..... One tab. daily Metoprolol Tartrate 25 Mg Tabs (Metoprolol tartrate) ..... One tab. twice daily m aintaining nsr O rders: C omplete Echo (CPT-96464) L ipid Strip (CPT-48808) [employer] Cardiac Tele (CPT-85769) Georges Rachel MD follow up: H er updated medication list for this problem includes: Aspirin 325 Mg Tabs (Aspirin) ..... One tab. daily Plavix 75 Mg Tabs (Clopidogrel bisulfate) ..... One tab. daily & #13;Orders: C omplete Echo (CPT-93678) L ipid Strip (CPT-05619) [employer] Cardiac Tele (CPT-88373) Georges Rachel MD follow up: H er updated medication list for this problem includes: Aspirin 325 Mg Tabs (Aspirin) ..... One tab. daily Lisinopril 5 Mg Tabs (Lisinopril) ..... One tab. daily Metoprolol Tartrate 25 Mg Tabs (Metoprolol tartrate) ..... One tab. twice daily Orders: C omplete Echo (CPT-96491) L ipid Strip (CPT-02261) M [facility] Cardiac Tele (CPT-10608) BP today: 138/81 Georges Rachel MD follow up: H er updated medication list for this problem includes: Lipitor 40 Mg Tabs (Atorvastatin calcium) ..... One tab. daily Zetia 10 Mg Tabs (Ezetimibe) ..... One tab. daily & #13;Orders: C omplete Echo (CPT-71448) L ipid Strip (CPT-30033) M [facility] Cardiac Tele (CPT-99710) Georges Rachel MD follow up: H er updated medication list for this problem includes: Aspirin 325 Mg Tabs (Aspirin) ..... One tab. daily Lipitor 40 Mg Tabs (Atorvastatin calcium) ..... One tab. daily Plavix 75 Mg Tabs (Clopidogrel bisulfate) ..... One tab. daily Lisinopril 5 Mg Tabs (Lisinopril) ..... One tab. daily Metoprolol Tartrate 25 Mg Tabs (Metoprolol tartrate) ..... One tab. twice daily Zetia 10 Mg Tabs (Ezetimibe) ..... One tab. daily s table, no angina or chf O rders: C omplete Echo (CPT-24310) L ipid Strip (CPT-20348) M [facility] Cardiac Tele (CPT-74016) Georges Rachel MD Date Name [facility] Advanced Li pid Panel with Inflammation ([facility]) LIPID PANEL Venous Doppler Bilat eral LE - Reflux Complete Echo LIPID PANEL LIPID PANEL TSH, 3RD GENERATION W/REFLEX TO FT4 T-4, FREE TSH, 3RD GENERATION HEPATIC FUNCTION YANG EL X-Ray, Chest - Routi ne CBC (H/H, RBC, INDIC ES, WBC, PLT) LIPID PANEL DLCO - 39866 FRC - 84743 FVC - 00609 TSH, 3RD GENERATION W/REFLEX TO FT4 HEPATIC FUNCTION YANG EL LIPID PANEL Sleep Study Home LIPID PANEL Sleep Study Home DLCO Order - [id number] FRC Order - [id number] FVC Order - [id number] DLCO Order - [id number] FRC Order - [id number] FVC Order - [id number] Mobile Cardiac Tele Complete Echo HISTORY OF PROCEDURES Procedure Date Procedure Name Provider Procedure Notes S tatus Complex e/m visit add on Georges Rachel MD completed Complex e/m visit add on Georges Rachel MD completed EKG Georges Rachel MD complet ed FVC / MVV with bronchodilator - 60534 Georges Rachel MD completed BLOOD COUNT HEMOGLOBIN Georges Rachel MD completed FRC - 68360 Georges Rachel MD comple lalitha SpO2 w/o 6min walk/titration Georges Rachel MD completed DLCO - 93342 Georges Rachel MD compl eted EKG Georges Rachel MD complet ed FVC / MVV with bronchodilator - 91678 Georges Rachel MD completed BLOOD COUNT HEMOGLOBIN Georges Rachel MD completed FRC - 66018 Georges Rachel MD comple lalitha SpO2 w/o 6min walk/titration Georges Rachel MD completed DLCO - 58981 Georges Rachel MD compl eted EKG Georges Rachel MD complet ed FVC / MVV - 34084 Georges Racehl MD completed BLOOD COUNT HEMOGLOBIN Georges Rachel MD completed FRC - 67356 Georges Rachel MD comple lalitha SpO2 w/o 6min walk/titration Georges Rachel MD completed DLCO - 07272 Georges Rachel MD compl eted SNOMED-CT: [id number] Current Medications Documented Georges Rachel MD completed EKG Georges Rachel MD complet ed SNOMED-CT: [id number] 162748 Current Medications Documented Georges Rachel MD completed FVC / MVV - 22680 Georges Rachel MD completed BLOOD COUNT HEMOGLOBIN Georges Rachel MD completed FRC - 68386 Georges Rachel MD comple lalitha SpO2 - 44920 Georges Rachel MD compl eted DLCO - 16706 Georges Rachel MD compl eted EKG Georges Rachel MD complet ed SNOMED-CT: 491499402 770580 Current Medications Documented Georges Rachel MD completed SNOMED-CT: 314231841 392532 Current Medications Documented Georges Rachel MD completed SNOMED-CT: 066285134 056817 Current Medications Documented Georges Rachel MD completed BLOOD COUNT HEMOGLOBIN Georges Rachel MD completed FVC - 70324 Georges Rachel MD comple lalitha FRC - 27183 Georges Rachel MD comple lalitha DLCO - 36738 Georges Rachel MD compl eted EKG Georges Racehl MD complet ed SNOMED-CT: 826925726 703376 Current Medications Documented Georges Rachel MD completed Event Monitor Georges Rachel MD comp leted BLOOD COUNT HEMOGLOBIN Georges Rachel MD completed FVC - 97550 Georges Rachel MD comple lalitha FRC - 27737 Georges Rachel MD comple lalitha DLCO - 39805 Georges Rachel MD compl eted Lipid Strip Georges Rachel MD comple lalitha SNOMED-CT: [id number] 558783 Current Medications Documented Georges Rachel MD completed Lipid Strip Georges Rachel MD in 3 months compl eted BLOOD COUNT HEMOGLOBIN Georges Rachel MD completed BLOOD COUNT HEMOGLOBIN Georges Rachel MD completed Lipid Strip Georges Rachel MD comple lalitha EKG Georges Rachel MD complet ed
--- OUTSIDE RECORDS SUMMARY | 2025-01-06 09:31 | XMS_ITS | Continuity of Care Document ---
Author Organization [facility] Address [address] [place] [address] Phone Care Team Providers Care Steel Heater Name Role Phone Franklin Chun Unavailable Unavailable Procedures Procedure Date Eye Exam Established Pt Ophthalmoscopy, Subsequent Ophthalmoscopy, Subsequent Post-op Follow-up Visit Eye Exam & Treatment Treatment Of Retina Ophthalmoscopy, Subsequent Office/outpatient Visit, [facility] Advance Directives Directive Yes / No Effective Date File Name No Information Encounters Encounter Description Practice Location Reason(s) For Visit Diagnoses Date Provider Providers Copied on Encounter [facility], [address] [place] [address] [address], [place], [place], [id number], [place] tel:[phone] [facility] No Information 0 Lay Reid. [address], [place], [facility], [place]. tel:[phone] Referring Provider: Franklin Mckenzie, [address], [place], [facility]. tel:[phone] [facility], [address] [place] [address] [address], [place], [place], [id number], [place] tel:[phone] [facility] No Information 0 Lay Reid. [address], [place], [facility], [place]. tel:[phone] [facility], [address] [place] [address] [address], [place], [place], [id number], [place] tel:[phone] [facility] No Information 0 Lay Reid. [address], [place], [facility], [place]. tel:[phone] Referring Provider: Franklin Mckenzie, [address], [place], [facility]. tel:[phone] Office/outpat ient Visit, [facility], [address], [place], [place], [id number], [place] tel:[phone] [facility] No Information 0 Mat Alatorre. [address] [facility] [address], [address], [place]. tel:[phone] Family History Family Member Type Diagnosis Age At Onset No Information Payers Payer name Insurance type Covered alliance party ID Authoriza tion(s) No Information Social History Type Description Quantity Date Captured Comments Sex Female Smoking Status No Information Chief Complaint And Reason For Visit No Information Reason For Referral Reason For Referral No Information History Of Present Illness Encounter Date Complaint History Of Prese nt Illness No Information Functional Status Date Functional Assessmen t No Information Instructions Date Instruction Additional Infor mation No Information Assessments Type Assessment Date No Information Patient Care Teams Name Effective Dates (start - stop) Status Members No Information
== END 2025-01-06 08:57 | disposition home or self-care (01) ==
PROVIDERS: PCP Family Medicine; Visit Provider Urology
DX: N20.0 Calculus of kidney (principal)
CPT/HCPCS: 74018